=== PATIENT | female | born 1935 | race Hispanic/Latino ===

== ENCOUNTER 2018-08-04 17:03 | Inpatient (IN) | payer MEDICARE ==
[~2018-08-04] VITALS: Ht 160 cm; Wt 71.2 kg
[~2018-08-04 17:03] MED LIST: ACTOS15 MG PO; ASPIRIN81 MG PO; DONEPEZIL HCL5 MG PO; LEVAQUIN500 MG PO; LISINOPRIL-HCT1 EAC1 PO; SIMVASTATIN PO
[2018-08-04] MEDS ORDERED: VANCOMYCIN 1GM/NS 250 ML 250 ML IV SCH ×2 (18:00→18:30)
[2018-08-04] MEDS ORDERED: ACETAMINOPHEN 325 MG TAB PO PRN ×2 (18:00→18:30)
[2018-08-04 18:09] VITALS: BP 179/84
[2018-08-04 18:17] VITALS: BP 179/84
[2018-08-04] MEDS ORDERED: ALENDRONATE SOD70 MG PO (18:18)
[2018-08-04] MEDS ORDERED: PEPCID20 MG PO (18:18)
[2018-08-04] MEDS ORDERED: OS-CAL 500+D T1 EACH PO (18:18)
[2018-08-04] MEDS ORDERED: MELOXICAM7.5 MG PO (18:18)
[2018-08-04] MEDS ORDERED: FERROUS SULFAT325 MG PO (18:18)
[2018-08-04] MEDS ORDERED: REMERON15 MG PO (18:18)
[2018-08-04] MEDS ORDERED: METOPROLOL TART25 MG PO (18:18)
[2018-08-04] MEDS ORDERED: LISINOPRIL10 MG PO (18:18)
[2018-08-04] MEDS ORDERED: HYDROCHLOROTHIA25 MG PO (18:18)
[2018-08-04] MEDS ORDERED: PIOGLITAZONE HC45 MG PO (18:18)
[2018-08-04] MEDS ORDERED: namzaric PO (18:18)
[2018-08-04] MEDS ORDERED: POTASSIUM CHLO10 ME1 PO (18:18)
[2018-08-04] MEDS ORDERED: GABAPENTIN300 MG PO ×2 (18:18)
[2018-08-04] MEDS ORDERED: PIPER-TAZ 3.375 GM 50 ML IV SCH (18:30)
[2018-08-04] MEDS ORDERED: MELOXICAM 7.5 MG TAB PO PRN (18:30)
[2018-08-04] MEDS ORDERED: ATORVASTATIN 20 MG TAB PO SCH (19:15)
[2018-08-04 20:00] VITALS: BP 191/79
[2018-08-04 20:21] LABS: BASOPHILS # (AUTO) 0.1 (0.0-0.1); BASOPHILS % 0.6 % (0.0-1.0); EOSINOPHILS # (AUTO) 0.3 (0.0-0.4); EOSINOPHILS % 2.9 % (0.0-6.0); HEMATOCRIT 33.8 % (34.2-44.1); LYMPHOCYTES % 23.2 % (18.0-39.1); MEAN CORPUSCULAR HEMOGLOBIN 31.6 pg (28-32); MEAN CORPUSCULAR HGB CONC 32.5 g/dL (31-35); MEAN CORPUSCULAR VOLUME 97.1 fL (81-99); MONOCYTES # (AUTO) 0.5 (0.2-0.8); MONOCYTES % 6.1 % (4.4-11.3); NEUTROPHILS # (AUTO) 5.7 (2.1-6.9); NEUTROPHILS % 66.7 % (38.7-80.0); PLATELET COUNT 208 x10e3/uL (140-360); RED BLOOD COUNT 3.48 x10e6/uL (3.6-5.1); RED CELL DISTRIBUTION WIDTH 13.3 % (11.7-14.4)
[2018-08-04] MEDS: PIPER-TAZ 3.375 GM 50 ML IV SCH (20:30)
[2018-08-04] MEDS: MIRTAZAPINE 15 MG TAB PO SCH (20:30)
[2018-08-04] MEDS: DONEPEZIL HCL 5 MG TAB PO SCH (20:30)
[2018-08-04] MEDS: GABAPENTIN 300 MG CAP PO SCH (20:30)
[2018-08-04] MEDS: ATORVASTATIN 40 MG TAB PO SCH (20:31)
--- NOTE | 2018-08-04 20:32 | Consultation ---
DATE OF CONSULTATION: CARDIOLOGY CONSULTATION REFERRING PHYSICIAN: Dr. Jamaal Cox REASON FOR CONSULTATION: Peripheral arterial disease. HISTORY OF PRESENT ILLNESS: Ms. Dillard is a pleasant 83-year-old woman with past history of dementia, hypertension, diabetes mellitus, dyslipidemia, who presents to [facility] with complaints of leg wounds to bilateral lower extremities. She is mainly bedbound, has had developed over the course of last several weeks to months right lateral ankle wound as well as first left toe tip wound and left heel wound, seemed to have a pressure component. Given these findings and abnormal pedal pulses on exam, there is suspicion for peripheral arterial disease contributing to her ongoing issues. She is getting admitted for further evaluation, and podiatry has also been consulted. She denies any chest pain or shortness of breath. Her is at bedside. We have extensively discussed plan of care from a cardiovascular standpoint. At this point, arterial Dopplers have been ordered and are pending. We discussed possibility of angiography and possible peripheral intervention. Indications, alternatives, risks, and benefits have been discussed and all questions were answered. Patient and her seemed agreeable to current plan. REVIEW OF SYSTEMS: Twelve-system review negative except for as noted above. PAST MEDICAL HISTORY: Significant for hypertension, diabetes mellitus type 2, dyslipidemia, dementia. SOCIAL HISTORY: No alcohol, smoking, or drugs. FAMILY HISTORY: Noncontributory. PHYSICAL EXAMINATION: VITAL SIGNS: Temperature 96.1, heart rate 76, respiratory rate 18, blood pressure 179/84, O2 sat 97% on room air. GENERAL: In no acute distress, alert. NECK: No JVD. CHEST: Clear to auscultation. CARDIOVASCULAR: Regular rate and rhythm. Normal S1 and S2. No S3, no S4. No murmurs, no rubs. ABDOMEN: Soft, nontender. EXTREMITIES: No edema. Nonpalpable pedal or dorsalis pedis pulses bilaterally. Has right lateral ankle wound and left first toe tip erythema and black discoloration as well as left heel wound. CARDIOVASCULAR MEDICATIONS: Reviewed. 1. Lisinopril 40 mg daily. 2. KCl 10 mEq every 48 hours. 3. Metoprolol tartrate 25 mg daily, will switch to extended-release formulation for longer stable duration of blood pressure optimization. 4. Hydrochlorothiazide 25 mg every day. 5. Zosyn and vancomycin have been initiated. STUDIES: Glucose 144, no additional lab work currently available. ASSESSMENT: 1. Peripheral arterial disease suspected by clinical grounds with critical limb ischemia affecting bilateral lower extremities with pressure wound component, now off-loading initiated and podiatry consulted. 2. Hypertension. 3. Diabetes mellitus. 4. Dyslipidemia. 5. Dementia. RECOMMENDATIONS: 1. Obtain lab work and assess renal function as well as H and H. 2. Await lower extremity arterial Dopplers to further plan care. Will likely consider angiography and possible intervention during this admission. Thank you for the opportunity to participate in the care of Ms. Dillard. Will follow closely with you. Job#: [id number]
[2018-08-04] MEDS: METOPROLOL TARTRATE 25 MG TAB PO SCH (20:34)
[2018-08-04] MEDS: HYDROCHLOROTHIAZIDE 25 MG TAB PO SCH (20:34)
[2018-08-04] MEDS: FAMOTIDINE 20 MG TAB PO SCH (20:35)
[2018-08-04] MEDS: ASPIRIN 81 MG CHEW TAB PO SCH (20:35)
[2018-08-04] MEDS: LISINOPRIL 20 MG TAB PO SCH (20:35)
[2018-08-04 20:51] LABS: ALBUMIN 3.7 g/dL (3.5-5.0); ALBUMIN/GLOBULIN RATIO 1.1 (0.8-2.0); CALCIUM 11.3 mg/dL (8.4-10.2); CREATININE, SERUM 1.02 mg/dL (0.57-1.11); POTASSIUM 4.6 mmol/L (3.5-5.1)
[2018-08-04 21:06] LABS: ANION GAP 13.6 mmol/L (8-16)
[2018-08-04] MEDS: VANCOMYCIN 1GM/NS 250 ML 250 ML IV SCH (22:14)
[2018-08-04] MEDS ORDERED: SODIUM CHLORIDE 0.9% 250ML 250 ML ONE (22:20)
[2018-08-05] VITALS (7 sets, daily range): BP systolic 119–179; BP diastolic 58–74
[2018-08-05] MEDS: PIPER-TAZ 3.375 GM 50 ML IV SCH ×4 (02:00→21:00)
[2018-08-05] MEDS ORDERED: PIOGLITAZONE HCL 45 MG TAB PO SCH (09:00)
[2018-08-05] MEDS ORDERED: [UNRECOGNIZED DRUG - OTHER] PO SCH (09:00)
[2018-08-05] MEDS ORDERED: HYDROCHLOROTHIAZIDE PO SCH (09:00)
[2018-08-05] MEDS ORDERED: POTASSIUM CHLORIDE 10MEQ EA PO SCH (09:00)
[2018-08-05] MEDS ORDERED: LISINOPRIL 10 MG TAB PO SCH (09:00)
[2018-08-05] MEDS ORDERED: LISINOPRIL PO SCH (09:00)
[2018-08-05] MEDS: FAMOTIDINE 20 MG TAB PO SCH ×2 (09:14→16:30)
[2018-08-05] MEDS: ASPIRIN 81 MG CHEW TAB PO SCH (09:14)
[2018-08-05] MEDS: PIOGLITAZONE HCL 15 MG TAB PO SCH (09:14)
[2018-08-05] MEDS: FERROUS SULFATE 325 MG TAB PO SCH (09:14)
[2018-08-05] MEDS: HYDROCHLOROTHIAZIDE 25 MG TAB PO SCH (09:14)
[2018-08-05] MEDS: OYST-CAL-D 500MG TABLET PO SCH (09:15)
[2018-08-05] MEDS: METOPROLOL TARTRATE 25 MG TAB PO SCH (09:15)
[2018-08-05] MEDS: GABAPENTIN 300 MG CAP PO SCH ×2 (09:15→21:34)
[2018-08-05] MEDS: LISINOPRIL 20 MG TAB PO SCH (09:15)
--- NOTE | 2018-08-05 10:33 | Diagnostic Imaging Report ---
PROCEDURE:ANKLE 3+ VIEWS LEFT (AP, LATERAL, AND OBLIQUE) INDICATION: COMPARISON:None. FINDINGS: Diffuse osteopenia. No evidence of fracture or malalignment. Ankle mortise is preserved. Mild scattered degenerative changes. No evidence of erosion or bony destructive changes. There is soft tissue swelling at the ankle. Plantar calcaneal spur. CONCLUSION: Diffuse osteopenia without specific radiographic evidence of osteomyelitis. Soft tissue swelling in the ankle. Dictated by: RAUL STUART M.D. on 08/05/2018 at 10:42 Electronically approved by: RAUL STUART M.D. on 08/05/2018 at 10:42
--- NOTE | 2018-08-05 10:36 | Diagnostic Imaging Report ---
PROCEDURE:X-RAY LEFT FOOT, COMPLETE COMPARISON:None. INDICATIONS:FOOT ULCER FINDINGS: Diffuse osteopenia. There is no evidence of fracture or malalignment. No evidence of erosion or other bony destructive changes. The soft-tissues are unremarkable. Atherosclerotic vascular calcifications. There is a plantar calcaneal spur. CONCLUSION: Diffuse osteopenia without radiographic evidence of osteomyelitis. Dictated by: RAUL STUART M.D. on 08/05/2018 at 10:44 Electronically approved by: RAUL STUART M.D. on 08/05/2018 at 10:44
--- NOTE | 2018-08-05 10:38 | Diagnostic Imaging Report ---
PROCEDURE:X-RAY LEFT HEEL COMPARISON:None. INDICATIONS:FOOT ULCER FINDINGS: Radiographs of the calcaneus demonstrate diffuse osteopenia without evidence of erosion or other bony destructive changes. Soft tissues are unremarkable. Mild scattered degenerative changes. There is a plantar calcaneal spur. CONCLUSION: Diffuse osteopenia without radiographic evidence of osteomyelitis. Dictated by: RAUL STUART M.D. on 08/05/2018 at 10:46 Electronically approved by: RAUL STUART M.D. on 08/05/2018 at 10:46
--- NOTE | 2018-08-05 11:50 | Diagnostic Imaging Report ---
MRI of the right foot without contrast. History: Lateral hindfoot ulceration. Foot pain. Technique: Multiplanar multisequence MRI of the right foot without contrast Comparison: None Findings: There is abnormal skin thickening with skin ulceration at the lateral aspect of the ankle at the level of the distal fibula. There is underlying cortical destruction and bone marrow edema in the distal fibula consistent with osteomyelitis. There is adjacent soft tissue edema. The findings are best seen on series 11 image 17 through 22. There is superficial soft tissue edema and blistering at the lateral aspect of the ankle/foot. This is best seen on image 23 through 30. No acute fracture, dislocation or evidence of avascular necrosis. Scattered degenerative changes are seen. There is diffuse muscle atrophy. No ligamentous or tendon tear is seen. Impression: Findings consistent with cellulitis, skin ulceration and underlying osteomyelitis involving the distal fibula. No well-formed drainable fluid collection/abscess is seen. Signed by: Dr. Nick Tran M.D. on 08/05/2018 11:46 AM
--- NOTE | 2018-08-05 11:59 | Diagnostic Imaging Report ---
MRI of the left foot without contrast. History: Great toe blister. Foot pain. Technique: Multiplanar multisequence MRI of the left foot without contrast Comparison: None Findings: There is abnormal skin thickening and soft tissue edema at the left great toe. No underlying cortical destruction or focal bone marrow edema is seen to suggest osteomyelitis in this region. There is abnormal skin thickening and apparent ulceration/blistering at the lateral aspect of the foot at the level of the distal fifth metatarsal. No underlying cortical destruction or focal bone marrow edema is seen to suggest osteomyelitis in this region. There is superficial soft tissue edema about the foot is pronounced dorsally. This is best seen on series 3 image 1 through 7. No acute fracture, dislocation or evidence of avascular necrosis. Scattered degenerative changes are seen. There is diffuse muscle atrophy. No ligamentous or tendon tear is seen. Impression: Findings consistent with cellulitis at the great toe. No underlying cortical destruction or focal bone marrow edema is seen to suggest osteomyelitis in this region. Findings consistent with cellulitis and apparent skin ulceration/blistering at the lateral aspect of the foot at the level of the distal fifth metatarsal. No underlying cortical destruction or focal bone marrow edema is seen to suggest osteomyelitis in this region. Signed by: Dr. Nick Tran M.D. on 08/05/2018 11:56 AM
--- NOTE | 2018-08-05 12:43 | Consultation ---
DATE OF CONSULTATION: August 05, 2018 ADMITTING PHYSICIAN: Dr. Cox. REASON FOR CONSULTATION: Nonhealing ulcerations to both lower extremities with patient being bedbound with dementia. HISTORY OF PRESENT ILLNESS: This is an 83-year-old female who was seen accompanied by spouse on this date, sleeping, in no apparent distress. Most of the history was obtained from the spouse. Patient has a history of [id number] diabetes x20 to 30 plus years with hypertension and dementia. Patients is basically bedbound. According to the , the ulcerations started appearing 3 to 4 weeks ago. SOCIAL HISTORY: No smoking, drinking, or recreational drug use. Has 5 kids. PAST SURGICAL HISTORY: Remarkable for back surgery and hysterectomy. ALLERGIES: PATIENT'S SPOUSE DENIES. FAMILY HISTORY: Noncontributory. REVIEW OF SYSTEMS: Unobtainable. VITAL SIGNS: Afebrile, pulse rate 64, respirations 17, blood pressure 152/67, and O2 saturation 96%. LABS: Noted, has a white blood cell count of 8.58, hemoglobin 11.0, hematocrit 33.8 with a platelet count of 206. PODIATRIC PHYSICAL EXAMINATION: Reveals the following; VASCULAR: Pedal pulses reveal the DP and PT are diminished. Skin temperature warm to touch. CFT to all toes less than 5 seconds. NEUROLOGIC: Reveals a decrease in protective sensation when utilized a [place]-Lamar 5.07 monofilament wire. Muscle mass is asymmetrical. Muscle strength is unobtainable, but patient has very flaccid muscles secondary to the patient being bedbound for years now. DERMATOLOGICAL There is a grade 3 possibly 4 ulceration down to bone to the lateral aspect of the right ankle, measuring more than 2 cm in diameter. There seems to be some bone exposed with periwound cellulitis and minimal foul smell. Has a grade 3 ulceration on plantar aspect of left heel, more than 5 cm in diameter, necrotic scab possibly down to subcu and bone. ASSESSMENT: Peripheral artery disease, multiple ulcerations, possible osteo with diabetic neuropathy. PLAN: X-rays of the both the left heel and right ankle will be ordered. We will start Santyl collagenase followed by diluted wet-to-dry Betadine to the right ankle ulceration and Betadine ointment to the left. We will continue offloading with pillow under calves at all times. Bedside debridement of ulcers may be done tomorrow. Continue IV antibiotics such as vancomycin and Zosyn. Prognosis is guarded. Job#: [id number] MYRAIM
--- NOTE | 2018-08-05 17:22 | Consultation ---
DATE OF CONSULTATION: INFECTIOUS DISEASE CONSULTATION REASON FOR CONSULTATION: Feet ulcers bilateral. Concerned about infection, osteomyelitis. Thank you so much for asking me to see this patient. HISTORY OF PRESENT ILLNESS: Patient is seen and examined, chart reviewed. This is a very pleasant 83-year-old female who has underlying history of dementia, hypertension, diabetes mellitus, hyperlipidemia, peripheral vascular disease, who presented to the emergency room with bilateral lower extremity wounds, one on the right leg on the lateral ankle and one on the left leg on the hip. The patient is mainly bedbound, and it seemed to me the way she is lying that is where the pressure points are. Patient does not really provide any meaningful information. History was taken mainly from her chart as well as her at the bedside. The patient was admitted. According to the , she has no fever, no chills, no nausea, no vomiting, no diarrhea, no urgency, no frequency. Fourteen points reviewed with him. All to negative except for what mentioned above. PAST MEDICAL HISTORY: As above. PAST SURGICAL HISTORY: She had back surgery, hysterectomy. ALLERGIES: NKA. SOCIAL HISTORY: There is no smoking, drug abuse, alcohol abuse. FAMILY HISTORY: Otherwise unremarkable. Laboratory data reviewed. Her medication: She is currently on Zosyn, Prinivil, Lopressor, Neurontin, aspirin, K-Dur, , vancomycin. Her wound showed gram-negative rods. Her white count 8.58, hemoglobin 11. Sodium 137, potassium 4.6 and her glucose 136, creatinine 1.02. Patient had an MRI of her foot, showed cellulitis, skin ulceration, underlying osteomyelitis in the distal fibula on the right foot, which was done without contrast. An MRI of her left foot showed cellulitis of the great toe, underlying cortical destruction, edema, osteomyelitis of the region. PHYSICAL EXAMINATION GENERAL: She is currently alert, does not seem to be in acute distress. VITAL SIGNS: Stable. Currently afebrile. HEENT: She does not appear icteric. NECK: Supple. CHEST: Clear. HEART: S1 and S2. No S3 or S4, no murmur. ABDOMEN: Soft. Bowel sounds present. No tenderness. EXTREMITIES: No edema. There are ulcers noted with yellowish eschar noted on the right foot and the lateral ankle. IMPRESSION 1. I think patient has osteomyelitis of bilateral feet from pressure ulcers. Concerned about peripheral vascular disease. I suggest a debridement to obtain bone for biopsy. Will discuss with Podiatry. Obtain a sed rate, C-reactive protein, a PICC line. She is currently coverage antibiotic, continue with the same. 2. Dementia. 3. Diabetes mellitus. 4. Hypercholesterolemia. Concerned about peripheral vascular disease. Will follow. Job#: [id number] EV
[2018-08-05] MEDS ORDERED: SODIUM CHLORIDE 0.9% 1000ML 1,000 ML IV SCH (18:15)
[2018-08-05] MEDS ORDERED: SODIUM CHLORIDE 0.9% 250ML 250 ML ONE (21:18)
[2018-08-05] MEDS ORDERED: SODIUM CHLORIDE 0.9% 50ML 50 ML ONE (21:18)
[2018-08-05] MEDS: MIRTAZAPINE 15 MG TAB PO SCH (21:34)
[2018-08-05] MEDS: ATORVASTATIN 40 MG TAB PO SCH (21:34)
[2018-08-05] MEDS: DONEPEZIL HCL 5 MG TAB PO SCH (21:34)
[2018-08-05] MEDS: VANCOMYCIN 1GM/NS 250 ML 250 ML IV SCH (21:55)
--- NOTE | 2018-08-05 22:32 | History and Physical ---
HISTORY OF PRESENT ILLNESS: An 83-year-old female with past medical history positive for dementia, hypertension, diabetes, who came to the hospital transferred to my office because she came for followup. She was found to have pretty severe wounds on both feet with foul smelling areas, possible osteomyelitis. She was admitted to the hospital. She was found to have osteomyelitis on one of the foot and also possible peripheral vascular disease. REVIEW OF SYSTEMS: Patient is sleeping, cannot give any information. PAST MEDICAL HISTORY: Positive for diabetes, hypertension and also dementia. ALLERGIES: NOT ALLERGIC TO ANY MEDICATION. SOCIAL HISTORY: She does smoke, does not drink. PHYSICAL EXAMINATION VITAL SIGNS: Blood pressure 118/58, temperature is 96.9, heart rate 60 per minute, respiratory rate 16 per minute. Oxygen saturation 98%. HEART: Regular rhythm. Normal S1, S2 sounds. LUNGS: Clear bilaterally. ABDOMEN: Soft. EXTREMITIES: Show foot ulcers on both feet. LABS: On the BMP, sodium 137, potassium 4.6, chloride 96, CO2 32, BUN 31, creatinine 1.02, glucose 136. On the CBC, white blood count 8.58, hemoglobin 11.0, hematocrit 33.8, platelet count 208,000. AST 22, ALT 15. Total bilirubin 0.4, alkaline phosphatase 119. FINAL IMPRESSION 1. Osteomyelitis on the right fibula, wounds on both feet with cellulitis. 2. Uncontrolled diabetes mellitus with chronic renal insufficiency and neuropathy. 3. Peripheral vascular disease. 4. Hypertension. 5. Osteoporosis. 6. 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 PLAN OF TREATMENT: Continue Zosyn 3.375 g IV q.6 h., vancomycin 1 g IV once a day, Tylenol 325 mg q.4 h. as needed for pain or fever, Aricept 5 mg at bedtime, Fosamax 70 mg once a week, gabapentin 600 mg at bedtime. We are going to discontinue hydrochlorothiazide. Continue the Lipitor 40 mg daily. Continue Actos 15 mg daily. Pepcid 20 mg twice a day, meloxicam 15 mg daily as needed, metoprolol 25 mg daily, collagenase ointment 1 g daily, Tylenol 650 mg q.6 h. as needed for pain or fever, ferrous sulfate 325 mg daily, Remeron 7.5 mg at bedtime, Lisinopril 40 mg daily, calcium carbonate 500 mg daily, gabapentin 300 mg daily, potassium chloride 10 mEq q.48 h., and aspirin [address] Peoples is on the case for cardiology. He is going to do an angiogram on Saturday. Dr. Freedman is going to be evaluating him pretty soon. We are going to start the patient on normal saline because of the renal insufficiency. Discontinue the potassium. Discontinue hydrochlorothiazide. Will repeat a BMP tomorrow. Job#: [id number]
--- NOTE | 2018-08-05 23:10 | Progress Note ---
DATE: August 05, 2018 CARDIOLOGY PROGRESS NOTE SUBJECTIVE: No complaints. Discussed abnormal Doppler findings and plan of care. OBJECTIVE VITAL SIGNS: Temperature 97.1, heart rate 64, respiratory rate 17, blood pressure 152/67, O2 sat 96%. GENERAL: In no acute distress, alert. NECK: No JVD. CHEST: Clear to auscultation. CARDIOVASCULAR: Regular rate and rhythm. Normal S1 and S2. No S3, no S4. ABDOMEN: Soft, nontender. EXTREMITIES: No edema. First toe tip wound, left heel wound, and bilateral ankle wound noted. Abnormal pulses to pedal and dorsalis pedis bilaterally. CARDIOVASCULAR MEDICATIONS: Reviewed. 1. Atorvastatin 40 mg nightly. 2. Metoprolol tartrate 25 mg daily. 3. Lisinopril 40 mg daily. 4. Aspirin 81 mg daily. 5. KCl 10 mEq every 48 hours. STUDIES: Reviewed. Potassium 4.6, creatinine 1.02. Hemoglobin 11, platelets 208,000. Normal transaminases. ASSESSMENT 1. Foot ulcers and peripheral artery disease. 2. Dyslipidemia. 3. Diabetes mellitus. 4. Hypertension. 5. Neuropathy. 6. Osteoporosis. 7. Anemia, chronic. RECOMMENDATIONS: Discussed extensively indications, alternatives, risks, and benefits for angiography and possible intervention. Patient agreeable. Discussed plan of care with patient and family members. Will schedule likely tomorrow a.m. Further recommendations to follow. Job#: [id number]
[2018-08-06] VITALS (14 sets, daily range): BP systolic 96–202; BP diastolic 51–92
[2018-08-06] MEDS ORDERED: SODIUM CHLORIDE 0.9% 1000ML 1,000 ML IV SCH
[2018-08-06] MEDS ORDERED: SODIUM CHLORIDE 0.9% 50ML 50 ML ONE (01:58)
[2018-08-06] MEDS: PIPER-TAZ 3.375 GM 50 ML IV SCH ×4 (02:04→20:00)
[2018-08-06 06:39] LABS: CALCIUM 8.5 mg/dL (8.4-10.2); CREATININE, SERUM 1.1 mg/dL (0.57-1.11)
[2018-08-06] MEDS: FAMOTIDINE 20 MG TAB PO SCH ×3 (07:30→16:10)
[2018-08-06] MEDS ORDERED: MIDAZOLAM HCL 2 MG/2 ML VIAL ONE (07:49)
[2018-08-06] MEDS ORDERED: HEPARIN SOD (PORCINE) 1000 UNIT/ML 30ML ONE (07:49)
[2018-08-06] MEDS ORDERED: LIDOCAINE HCL 2% LOCAL 20 ML VIAL ONE (07:50)
[2018-08-06] MEDS ORDERED: SODIUM CHLORIDE 0.9% 1000ML 1,000 ML ONE (07:50)
[2018-08-06] MEDS ORDERED: HEPARIN SOD/SOD CHLORIDE 2,000 ML ONE (07:50)
[2018-08-06] MEDS ORDERED: FENTANYL CITRATE/PF 100MCG/2 ML INJ ONE (07:50)
[2018-08-06] MEDS ORDERED: IOPAMIDOL 300MG/ML 100 ML INFUS..BTL IV ONE ×3 (07:50→09:10)
[2018-08-06] MEDS ORDERED: NITROGLYCERIN/D5W 200 MCG/ML 0 ML ONE (07:50)
--- NOTE | 2018-08-06 08:56 | Progress Note ---
DATE: August 06, 2018 CARDIOLOGY PROGRESS NOTE SUBJECTIVE: No complaints. OBJECTIVE VITAL SIGNS: Temperature 97.1, heart rate 63, respiratory rate 19, blood pressure 160/68, O2 sat 95% on room air. GENERAL: In no acute distress. NECK: No JVD. CHEST: Clear to auscultation. CARDIOVASCULAR: Regular rate and rhythm. Normal S1 and S2. No S3, no S4. No murmurs or rubs. ABDOMEN: Soft, nontender. EXTREMITIES: Left heel wound and right lateral ankle wound. CARDIOVASCULAR MEDICATIONS: Reviewed. Zosyn, vancomycin, atorvastatin, lisinopril, metoprolol, ferrous sulfate, and aspirin. STUDIES: Reviewed for today. Sodium 135, potassium 4, chloride 99, bicarbonate 26, BUN 25, creatinine 1.1, glucose 125, calcium 8.5. ASSESSMENT 1. Peripheral arterial disease by Dopplers. 2. Foot ulcers bilaterally. 3. Dyslipidemia. 4. Diabetes mellitus. 5. Hypertension. 6. Neuropathy. 7. Osteoporosis. 8. Chronic anemia. RECOMMENDATIONS: Schedule for angiography and possible intervention today. Foot care per Dr. Freedman. Continue current cardiovascular medications. Job#: [id number]
--- NOTE | 2018-08-06 09:06 | Progress Note ---
DATE: August 06, 2018 SUBJECTIVE: The patient will be going to have an angiogram and possible angioplasty per Dr. Peoples this morning. OBJECTIVE: Vitals are noted to be afebrile with vital signs stable. Ulcerations to both lower extremities show minimal change since yesterday. ASSESSMENT: Grade-4 ulceration down to bone right ankle with a grade-3 ulcer, plantar aspect, left heel, more than 5 cm with necrotic scab possibly down to subcutaneous and bone. PLAN: Continue offloading. Continue local wound care. Will await Dr. Peoples to perform his vascular procedure. Ulcerations will possibly be debrided tomorrow. Job#: [id number]
[2018-08-06] MEDS: PIOGLITAZONE HCL 15 MG TAB PO SCH (10:02)
[2018-08-06] MEDS: OYST-CAL-D 500MG TABLET PO SCH (10:03)
[2018-08-06] MEDS: LISINOPRIL 20 MG TAB PO SCH (10:03)
[2018-08-06] MEDS: GABAPENTIN 300 MG CAP PO SCH ×2 (10:03→20:14)
[2018-08-06] MEDS: ASPIRIN 81 MG CHEW TAB PO SCH (10:03)
[2018-08-06] MEDS: FERROUS SULFATE 325 MG TAB PO SCH (10:03)
[2018-08-06] MEDS: METOPROLOL TARTRATE 25 MG TAB PO SCH (10:03)
--- NOTE | 2018-08-06 10:27 | Operative Report ---
DATE OF PROCEDURE: August 06, 2018 PROCEDURE INDICATIONS: Critical limb ischemia with decubitus wounds to left heel and 1st toe tip and lateral right ankle wound with abnormal Doppler ultrasound concerning for peripheral arterial disease. PROCEDURES PERFORMED 1. Abdominal aortogram. 2. Selective lower extremity angiography, bilateral. 3. Right common femoral artery 6-Montserratian Angio-Seal closure. PROCEDURE COMPLICATIONS: None. ESTIMATED BLOOD LOSS: Less than 15 mL. PROCEDURE SUMMARY: After consent was obtained, the patient was prepped and draped in a sterile fashion. A 6-[place]atian sheath was placed to the right common femoral artery. An Omni Flush catheter was positioned in the distal descending abdominal aorta for digital subtraction angiography in orthogonal views, given cement from vertebroplasty obscuring the aortoiliac bifurcation, in order to better evaluate this segment of the arteries. Additional lower extremity angiography was selectively performed to each left and then right lower extremity with some digital subtraction angiography as well as cine angiography pictures to optimally visualize vessels. The following findings were noted: The renal arteries are patent. The distal descending abdominal aorta and iliac vessels have luminal irregularities. The iliac vessels are very tortuous with right common iliac artery having an over 90-degree turn and left external iliac artery again having over 90-degree turns. The common femoral, profunda femoris, superficial femoris and popliteal arteries have luminal irregularities. The right anterior tibial artery is 100% occluded throughout proximal to distal. The right posterior tibial is 100% occluded proximal to distal. The TP trunk and peroneal artery are patent, large in caliber, with the peroneal artery having 30% proximal stenosis. It gives right lateral ankle branches, and blushing is significantly pronounced to the right lateral aspect of the area of the wound consistent with linear perfusion to this level. There is otherwise severe small vessel diabetic foot disease. The left anterior tibial is proximal to distal 100% occluded, long chronic total occlusion. The left dorsalis pedis artery in the mid portion has a short segment patency, which fills the peroneal branches. However, distally again occluded. Again, very severe small vessel disease at the digital arteries level. The left peroneal artery has 40% proximal stenosis, and the left posterior tibial artery is overall small in caliber and diffusely diseased, less than 50%. CONCLUSION: Severe small vessel foot disease bilaterally. Single peroneal artery perfusing the right ankle site wound. Otherwise, left heel wound perfused via the posterior tibial artery and peroneal artery. Digital arteries at the left foot level are poorly perfused with a long anterior tibial occlusion and short segment of dorsalis pedis patency with distal occlusion. Poor outflow. RECOMMENDATIONS: Aggressive offloading, wound care. Guarded foot prognosis bilaterally. Perfusion to the right lateral ankle wound noted. As needed, debridement can be performed from a vascular standpoint with some perfusion to this level. Job#: [id number]
[2018-08-06] MEDS: COLLAGENASE OINTMENT 30 GM TUBE TP SCH (11:10)
--- NOTE | 2018-08-06 12:52 | Diagnostic Imaging Report ---
EXAM: RENAL ULTRASOUND Date: 08/06/2018 12:00 AM Indication: Acute renal failure Comparison: None. Limitations: Patient unable to adequately position or hold breath. Image quality moderately degraded. Technique: Sonographic evaluation of the kidneys. Color doppler was utilized to supplement evaluation. FINDINGS: KIDNEYS: Right: Measures 7.1 cm in length. No hydronephrosis or solid mass lesion identified. Renal cortex measures 1.2 cm. Left: Measures 9.4 cm in length. No hydronephrosis or solid mass lesion identified. Renal cortex measures 1.4 cm. URINARY BLADDER: Unremarkable. Physiologic ureteral jets noted. OTHER: None. IMPRESSION: Renal size discrepancy with probable increased echotexture right kidney which can be seen in the setting of renal artery stenosis. Correlation recommended. Signed by: Dr. Jamal Hinds MD on 08/06/2018 12:49 PM
--- NOTE | 2018-08-06 18:32 | Progress Note ---
DATE: August 06, 2018 INTERNAL MEDICINE PROGRESS NOTE SUBJECTIVE: An 83-year-old female who had an angiogram done by Dr. Peoples and he found peripheral vascular disease with small vessel disease also. He recommended conservative treatment. She is not a candidate for any interventional procedure. Patient is going to have treatment by Dr. Freedman tomorrow. PHYSICAL EXAM: VITAL SIGNS: Blood pressure 154/65. Temperature 97.1. Heart rate 66 per minute. Respiratory rate 18 per minute. Oxygen saturation 97%. HEART: Regular rhythm. No murmur. No extra sounds. LUNGS: Clear bilaterally. ABDOMEN: Soft. EXTREMITIES: Show dressing on both feet. LABORATORY DATA: On the BMP sodium 135, potassium 4.0, chloride 99, CO2 26, BUN 25, creatinine 1.10. Glucose 127. On the CBC white blood count 8.58. Hemoglobin 11.0, hematocrit 33.8, platelet count 208,000. AST 22, ALT 15. Total bilirubin 0.4, alkaline phosphatase of 119. FINAL IMPRESSION: 1. Bilateral leg wounds with osteomyelitis on the right foot. 2. Uncontrolled diabetes mellitus type 2 with chronic renal insufficiency. 3. 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 4. Dementia. 5. Anemia of chronic disease. 6. Severe peripheral vascular disease. 7. Osteoporosis. 8. Osteoarthritis. PLAN OF TREATMENT: Continue Zosyn 3.375 grams IV q.6 hours. Vancomycin 1 gram IV daily. Continue Aricept 5 mg at bedtime. Fosamax 70 mg once a week. Gabapentin 300 mg at bedtime. Lisinopril 40 mg daily. Clonidine 0.2 mg q.4 h. as needed. Actos 15 mg daily. Pepcid 20 mg twice a day. Meloxicam 15 mg daily as needed. Aspirin 81 mg daily. Going to discontinue meloxicam because of the renal insufficiency. Continue Tylenol 350 mg q.6 h. as needed for pain and fever. Ferrous sulfate 325 mg daily. Remeron 7.5 mg at bedtime. Lipitor 40 mg daily. Calcium carbonate 500 mg daily. Gabapentin 300 mg daily. Metoprolol 25 mg daily. Collagenase 1 gram daily. The patient is going to have debridement tomorrow by Dr. Freedman, and after that he is going to go to [place]. Job#: [id number]
[2018-08-06] MEDS: MIRTAZAPINE 15 MG TAB PO SCH (20:14)
[2018-08-06] MEDS: ATORVASTATIN 40 MG TAB PO SCH (20:14)
[2018-08-06] MEDS: DONEPEZIL HCL 5 MG TAB PO SCH (20:14)
[2018-08-06] MEDS: VANCOMYCIN 1GM/NS 250 ML 250 ML IV SCH (21:00)
[2018-08-06] MEDS: CLONIDINE HCL 0.2 MG TAB PO PRN (23:35)
[2018-08-07] MEDS: PIPER-TAZ 3.375 GM 50 ML IV SCH ×3 (02:00→14:52)
[2018-08-07 04:00] VITALS: BP 113/51
[2018-08-07 06:20] LABS: ANION GAP 12.8 mmol/L (8-16); CALCIUM 8.5 mg/dL (8.4-10.2); CREATININE, SERUM 0.97 mg/dL (0.57-1.11); POTASSIUM 3.8 mmol/L (3.5-5.1)
[2018-08-07 07:30] VITALS: BP 122/59
[2018-08-07 07:42] VITALS: BP 122/59
[2018-08-07] MEDS: FERROUS SULFATE 325 MG TAB PO SCH (08:55)
[2018-08-07] MEDS: FAMOTIDINE 20 MG TAB PO SCH ×2 (08:55→16:25)
[2018-08-07] MEDS: PIOGLITAZONE HCL 15 MG TAB PO SCH (08:55)
[2018-08-07] MEDS: ASPIRIN 81 MG CHEW TAB PO SCH (08:55)
[2018-08-07] MEDS: LISINOPRIL 20 MG TAB PO SCH (08:56)
[2018-08-07] MEDS: COLLAGENASE OINTMENT 30 GM TUBE TP SCH (08:56)
[2018-08-07] MEDS: METOPROLOL TARTRATE 25 MG TAB PO SCH (08:56)
[2018-08-07] MEDS: GABAPENTIN 300 MG CAP PO SCH (08:56)
[2018-08-07] MEDS: OYST-CAL-D 500MG TABLET PO SCH (08:56)
--- NOTE | 2018-08-07 09:12 | Progress Note ---
DATE: August 07, 2018 SUBJECTIVE: Patient seen at bedside, accompanied by multiple family members. Doing somewhat better. OBJECTIVE: VITAL SIGNS: Afebrile. Pulse rate 56, respirations 16, blood pressure 122/59, O2 saturation 94%. EXTREMITIES: Has a grade 4 ulceration with some bone exposed to the lateral aspect of the right fibula. Ulcer is approximately 2.5 to 3 cm in diameter. Has a grade 3 ulcer, plantar aspect, left heel more than 4 to 5 cm in diameter. Pedal pulses are diminished. Skin temperature between warm and cool to touch. LABS: Noted. White blood cell count of 8.5. ASSESSMENT: Peripheral arterial disease with a grade 4 ulcer, right foot and grade 3 ulcer, left. PLAN: Her family members being present. Sharp excisional debridement of the ulcer was carried down to bone. Devitalized tissue removed until good viable bleeding tissue was achieved. Will continue applying Santyl, followed by diluted wet-to-dry Betadine. Continue offloading. Patient will be transferred to [place] for IV antibiotics and continued local wound care. Family members instructed and informed to try to keep the foot offloaded with a pillow under calf to offload both the left heel and then right ankle area. Job#: [id number]
--- NOTE | 2018-08-07 12:20 | Consultation ---
DATE OF CONSULTATION: August 07, 2018 RENAL CONSULTATION ADMITTING PHYSICIAN: Dr. Cox. REASON FOR CONSULTATION: Chronic kidney disease. HISTORY OF PRESENT ILLNESS: An 83-year-old female with history of diabetes, hypertension and dementia, who was admitted to [facility] for bilateral lower extremity wounds. Patient has some dementia and just had surgery this morning, and history is taken from medical record as well as patient's who is at bedside. Patient developed bilateral lower extremity wounds and was following up with Podiatry, and her wounds and general condition were getting worse. Patient was seen by Dr. Cox, and patient was sent to hospital for further instruction. Patient was found to have a decreased estimated GFR, and nephrology consultation was called. REVIEW OF SYSTEMS: As above. Otherwise all other systems negative and limited due to patient's dementia. PAST MEDICAL HISTORY 1. Diabetes. 2. Hypertension. 3. Dementia. 4. Bilateral lower extremity wounds. SOCIAL HISTORY: Currently no tobacco or alcohol or IV drugs. FAMILY HISTORY: Sister with chronic kidney disease. ALLERGIES: NO KNOWN DRUG ALLERGIES. CURRENT MEDICATIONS: See list, includes lisinopril, metoprolol, calcium carbonate, iron sulfate, Zosyn, vancomycin, Mobic discontinued. VITAL SIGNS: Blood pressure 122/59, pulse 56, temperature 96.3, respiratory rate 16. PHYSICAL EXAMINATION GENERAL: No apparent distress. HEENT: Oropharynx clear. No scleral icterus. No papilledema. NECK: Supple. No elevation of jugular venous pressure. No lymphadenopathy. CHEST: Clear to auscultation anteriorly bilaterally. CARDIOVASCULAR: Regular rhythm. No murmurs, rubs or gallops. ABDOMEN: Soft. Positive bowel sounds. No tenderness, no rebound. EXTREMITIES: No edema, no clubbing, no cyanosis. Bilateral dressing on both lower extremities. LABS: Sodium 135, potassium 4, chloride 99, CO2 26, BUN 25, creatinine 1.10, estimated GFR 47 mL per minute. Creatinine currently 0.97 with estimated GFR of 55. White count 8.58, hemoglobin 11, hematocrit 33.8, platelets 208. IMAGING Renal ultrasound: Right kidney 7.1 cm, left kidney 9.4 cm. Increased echo texture. Possible renal artery stenosis with discrepancy in size. Foot magnetic resonance imaging: Consistent with cellulitis of the right foot. MRI of the left foot, no evidence of osteomyelitis. ASSESSMENT AND PLAN 1. Patient's current estimated glomerular filtration rate is 55 mL per minute, which would make her stage 3 chronic kidney disease. May improve slightly with antibiotics and now that she is off Mobic, and she may be possibly stage 2. Her renal ultrasound is consistent with this. Will check urine studies. Otherwise will need to dose all antibiotics appropriately and follow vancomycin levels. 2. Hypertension. Patient with possible renal artery stenosis. Doppler has been ordered, although left kidney is generally 1 to 1.5 cm bigger than the right kidney. 3. Hyponatremia. Improved. Will follow and adjust IV fluids as needed. 4. Diabetes. Per primary team. 5. Bilateral lower extremity wounds and cellulitis. Continue current antibiotics and wound care. Job#: [id number] EV
[2018-08-07 12:22] VITALS: BP 147/64
[2018-08-07 14:00] LABS: BILIRUBIN,URINE NEGATIVE (NEGATIVE); CLARITY,URINE SL CLOUDY (CLEAR); COLOR,URINE YELLOW (YELLOW); KETONES,URINE NEGATIVE (NEGATIVE); LEUKOCYTE ESTERASE ,URINE TRACE (NEGATIVE); NITRITE,URINE NEGATIVE (NEGATIVE); PROTEIN,URINE DIPSTICK NEGATIVE (NEGATIVE); URINE UROBILINOGEN 0.2 mg/dL (0.2 - 1)
[2018-08-07 14:14] LABS: AMORPHOUS SEDIMENT,URINE FEW (FEW); BACTERIA,URINE FEW /HPF; EPITHELIAL CELLS,URINE FEW /LPF; RBC,URINE 0-5 /HPF (0-5); TRANSITIONAL EPI CELLS,URINE FEW; WBC,URINE (MAN) 0-5 /HPF (0-5); YEAST,URINE FEW
[2018-08-07 14:35] LABS: CREATININE,URINE RANDOM 25.47 mg/dL (47-110); TOTAL PROTEIN, URINE 6.9 mg/dL (1-14)
--- NOTE | 2018-08-07 16:21 | Progress Note ---
DATE: August 07, 2018 CARDIOLOGY PROGRESS NOTE SUBJECTIVE: No complaints. OBJECTIVE VITAL SIGNS: Temperature 97.2, heart rate 51, respiratory rate 18, blood pressure 147/64, O2 sat 97% on room air. GENERAL: In no acute distress, alert. NECK: No JVD. CHEST: Clear to auscultation bilaterally. CARDIOVASCULAR: Regular rate and rhythm. Normal S1 and S2, no S3 or S4. ABDOMEN: Soft. EXTREMITIES: No edema and left heel and first toe wound and right lateral malleolus heel, status post debridement. CARDIOVASCULAR MEDICATIONS: Reviewed. Lisinopril 40 mg daily, metoprolol 25 mg daily, aspirin 81 mg daily, clonidine p.r.n., atorvastatin 40 mg nightly, on antibiotics p.r.n. STUDIES: Reviewed. Sodium 137, potassium ___.8, chloride 102, ____, BUN 22, creatinine 0.97, glucose 134, calcium 9.5. Vancomycin 14. ASSESSMENT: 1. Peripheral arterial disease, severe small vessel full disease bilaterally with single peroneal artery perfused in right ankle site wound, otherwise left heel wound perfuse via left posterior tibial and peroneal artery. These 2 arteries at the left foot level are severely diseased, anterior tibial occluded. Distal dorsalis pedis occluded, overall poor flow at this level. 2. Dyslipidemia. 3. Diabetes mellitus. 4. Hypertension. 5. Neuropathy. 6. Osteoporosis. 7. Chronic anemia. 8. Foot ulcers bilaterally. PLAN: 1. Continue current cardiovascular medications. 2. Antibiotics. 3. Foot care per podiatry. 4. Possible transfer to [place]. Job#: [id number]
[2018-08-07] MEDS: CLONIDINE HCL 0.2 MG TAB PO PRN (16:25)
[2018-08-07 16:32] VITALS: BP 167/76
--- NOTE | 2018-08-07 16:39 | Discharge Summary ---
This is an 83-year-old female who has a past medical history positive for dementia. The patient was originally admitted to [facility] with infected wounds of both feet. She was found to have osteomyelitis of the right foot and severe peripheral vascular disease. Patient underwent debridement by Dr. Freedman. According to Dr. Peoples, [employer] hrms developer on the case, she is not a candidate for any type of invasive intervention on the poor circulation she is having in both lower extremities. Patient is going to be transferred to [facility] today. On the physical exam, the heart shows regular rhythm. Normal S1 and S2 sounds. Lungs are clear bilaterally. Abdomen is soft. Extremities show bilateral wounds on both feet. FINAL IMPRESSIONS 1. Osteomyelitis, right foot. 2. Open wound and cellulitis on the left foot. 3. Uncontrolled diabetes mellitus, type 2, with chronic renal insufficiency. 4. Chronic renal insufficiency, stage 3, most likely secondary to diabetic nephropathy. 5. Peripheral vascular disease. 6. Osteoporosis. 7. Diabetic neuropathy. PLAN OF TREATMENT: Continue current IV antibiotic therapy. Continue wound care. Continue antiplatelet agents. Continue with the renal diabetic diet. Patient is going to be transferred to [facility] for continuation of IV antibiotic and wound care. STACY JEONG MD Job#: [id number]
--- NOTE | 2018-08-07 17:59 | Diagnostic Imaging Report ---
EXAMINATION: Renal Doppler ultrasound. CLINICAL HISTORY :Hypertension COMPARISON: <None available.> TECHNIQUE: Attempted Grayscale and color Doppler evaluation of the kidneys and bladder was performed in transverse and longitudinal planes. Attempted Doppler interrogation of the main, hilar, segmental and arcuate renal arteries bilaterally as well as evaluation of the aorta were performed. DISCUSSION: RIGHT KIDNEY: The right kidney measures 8.9 cm in length and shows increased echogenicity. No hydronephrosis, shadowing calculi or solid mass lesions. Right main renal artery PSV is 33 cm/sec. Highest right segmental artery PSV is 33 cm/sec. The right renal artery PSV/aortic PSV ratio is No measurable. LEFT KIDNEY: The left kidney measures 8.6 cm in length and shows increased echogenicity. No hydronephrosis, shadowing calculi or solid mass lesions. Left main renal artery PSV is 25 cm/sec. Highest left segmental artery PSV is not measurable. The left renal artery PSV/aortic PSV ratio is not measurable. Abdominal aortic PSV is not measurable. IMPRESSION: Nondiagnostic renal Doppler ultrasound. Majority of the renal arteries and aorta not measurable due to difficulty with exam by technologist. Small kidneys with increased echogenicity secondary to chronic medical renal disease. Signed by: Dr. Grant Reagan M.D. on 08/07/2018 5:56 PM
[2018-08-07 18:09] VITALS: BP 142/60
[2018-08-08] MEDS ORDERED: ALENDRONATE SODIUM 70 MG TAB PO SCH (06:30)
--- OUTSIDE RECORDS SUMMARY | 2018-08-12 12:08 | XMS REPORT | Summary of Care ---
Author Author [facility] Address Unknown Phone Unavailable Encounter HQ Steve(RAMIRO) [id number] Date(s): 04/10/18 - 05/09/18 Counts include 234 beds at the [facility] Encounter Diagnosis Encounter for general adult medical examination without abnormal findings (Final) - Encounter for screening for diabetes mellitus (Final) - Encounter for screening for lipoid disorders (Final) - Encounter for screening for infections with a predominantly sexual mode of trans mission (Final) - Discharge Disposition: Home or Self Care Attending Physician: Waldemar España Vital Signs No data available for this section Problem List Condition Effective Dates Status Health Status Informant Diabetes(Confirmed) Active High blood pressure Active (not hypertension)(Confir med) Arthritis(Confirmed) Active Osteoporosis(Confirm Active ed) Allergies, Adverse Reactions, Alerts No data available for this section Medications No data available for this section Results No data available for this section Immunizations No data available for this section Procedures Procedure Date Related Diagnosis Body Site Status Cataract surgery Completed Social History Social History Type Response Smoking Status Never smoker; Exposure to Tobacco Smoke None; Cigarette Smoking Last 365 Days No; Reg Smoking Cessation Counseling No entered on: 04/26/17 Assessment and Plan No data available for this section
--- OUTSIDE RECORDS SUMMARY | 2018-08-12 12:08 | XMS REPORT | Summary of Care ---
Author Author [facility] Organization [facility] Address Unknown Phone Unavailable Encounter HQ Encntr_alias(FIN) [id number] Date(s): 01/02/17 - 01/02/17 [facility] [place] [address] [place] [address]- [phone] Discharge Disposition: Home or Self Care Attending Physician: Kia Avila MD Vital Signs No data available for this section Problem List No data available for this section Allergies, Adverse Reactions, Alerts No data available for this section Medications No data available for this section Results No data available for this section Immunizations No data available for this section Procedures No data available for this section Social History No data available for this section Assessment and Plan No data available for this section
--- OUTSIDE RECORDS SUMMARY | 2018-08-12 12:08 | XMS REPORT | Continuity of Care Document ---
Author Author Rangel sanon [facility] Interface Address Unknown Phone Unavailable Problems Problem Status Onset Date Classification Date Reported Comments Source RIGHT SHOULDER Active 03/31/2018 [facility] [place] M25.511 Active 09/03/2017 [facility] M25.561 Active 05/02/2017 [facility] Encounter for general adult medical examination without abnormal findings 05/12/2018 [facility] [place] Encounter for screening for diabetes mellitus 05/12/2018 [facility] [place] Encounter for screening for lipoid disorders 05/12/2018 [facility] [place] Encounter for screening for infections with a predominantly sexual mode of transmission 05/12/2018 [facility] [place] Diabetes Active Problem 05/12/2018 [facility], ALVAREZ Sanon,[facility] [place] High blood pressure (<span ID="[id number]">Confirmed</span>) Active Problem 05/12/2018 [facility], ALVAREZ Sanon,[facility] [place] Arthritis Active Problem 05/12/2018 [facility], ALVAREZ Sanon,[facility] [place] Osteoporosis Active Problem 05/12/2018 [facility], MAYTE Fab,[facility] [place] PAIN IN RIGHT KNEE Active [facility] PAIN IN LEFT KNEE Active [facility] PAIN IN RIGHT SHOULDER Active [facility] PRIMARY OSTEOARTHRITIS, RIGHT SHOULDER Active [facility] [place] IMPINGEMENT SYNDROME OF RIGHT SHOULDER Active [facility] [place] SUPERIOR GLENOID LABRUM LESION OF RIGHT Active [facility] [place] ENCNTR FOR GENERAL ADULT MEDICAL EXAM W/ Active [facility] [place] ENCOUNTER FOR SCREENING FOR DIABETES ROBERTO Active [facility] [place] ENCOUNTER FOR SCREENING FOR LIPOID DISOR Active [facility] [place] ENCNTR SCREEN FOR INFECTIONS W SEXL MODE Active [facility] [place] Medications Medication Details Route Status Patient Instructions Ordering Provider Order Date Source Allergies, Adverse Reactions, Alerts Substance Category Reaction Severity Reaction type Status Date Reported Comments Source Immunizations Immunization Date Given Site Status Last Updated Comments Source Results Order Name Results Value Reference Range Date Interpretation Comments Source Shoulder series DX Shoulder series DX Right shoulder 3 views: There is generalized osteoporosis. There is marked bone loss involving the humeral head with flattening and sclerosis. The glenoid appears relatively uninvolved. There is no fracture or dislocation. Mild periarticular calcification is seen around the inferior glenohumeral joint. There is no significant change compared to previous right shoulder radiographs on 05/02/2017. IMPRESSION: Severe arthropathy involving the right humeral head without acute radiographic abnormalities in the right shoulder. [id number] 09/03/2017 - - Read by: Kelvin Olsen MD Dictated Date/time: 09/03/17 12:13 Electronically Signed by: Kelvin Olsen MD 09/03/17 12:18 FINAL REPORT [facility] cervical w/wo contrast MRI Spine cervical w/wo contrast MRI Exam: MRI of the neck with and without contrast DATE: 05/17/2017 at 17:47. INDICATION: Carotid body tumor. COMPARISON: CT neck 04/03/2017, MRI cervical spine 03/18/2017. TECHNIQUE: Multiplanar multisequence images were obtained before and after the intravenous administration of 13 cc Dotarem. Discussion: There has been no significant change in the enhancing bilobed mass at the left common carotid bifurcation measuring 33 x 16 x 12 mm, splaying the internal and external carotid arteries. There is no discrete invasion into the cervical ICA. Stable 8 x 10 x 17 mm enhancing mass at the bifurcation of the right common carotid artery splaying the right internal and external carotid arteries without invasion into the cervical right ICA. 7 x 9 mm enhancing lesion in the left carotid space lateral to the distal left ICA at C1 level, unchanged since prior CT exam. 5 mm enhancing mass medial to the distal cervical left ICA at C2 level, stable since prior CT. No enhancing masses in the jugular foramen or middle ear cavities. Degenerative changes in the cervical spine are resulting in canal stenosis or cord compression. 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 05/17/2017 - - Read by: Alie Sloan MD Dictated Date/time: 05/18/17 11:08 Electronically Signed by: Alie Sloan MD 05/20/17 08:55 FINAL REPORT [facility] [place] Knee 1-2 Views Bilateral DX Knee 1-2 Views Bilateral DX Patient Name: JEREMY ARCHER : 1935; Age: 82 years y/o Female MR: [id number] BILATERAL KNEES * RIGHT KNEE, 2 views History: right knee pain, Technique: Frontal and lateral radiographs of the right knee were obtained. FINDINGS: There is no evidence of a significant joint effusion. There is no evidence of fracture, dislocation, or acute change. There are minimal degenerative changes. There is no significant joint space narrowing. There is mild spurring from the tibial spines and pulse of the patella. Vascular calcifications are noted. IMPRESSION: 1. Minimal degenerative changes, otherwise, negative right knee. * LEFT KNEE, 2 views History: left knee pain, Technique : Frontal and lateral radiographs of the left knee were obtained. FINDINGS: There is no evidence of a significant joint effusion. There is no evidence of fracture, dislocation, or acute change. There are minimal degenerative changes. There is slight spurring from the tibial spines and poles of the patella. The joint spaces are well-maintained. Vascular calcifications are noted. IMPRESSION: 1. Minimal degenerative changes. Otherwise, negative left knee. SL: [id number] 05/02/2017 - - Read by: Doyle Villar MD Dictated Date/time: 05/02/17 14:07 Electronically Signed by: Doyle Villar MD 05/02/17 14:25 FINAL REPORT [facility] Shoulder 1 view DX Shoulder 1 view DX Patient Name: JEREMY ARCEHR : 1935; Age: 82 years y/o Female MR: [id number] RIGHT SHOULDER, one view History: Right shoulder pain. Technique: Single limited frontal view of the right shoulder was obtained. IMPRESSION: 1. Abnormal right glenohumeral joint. The humeral head is markedly flattened and deformed which could be related to prior trauma, avascular necrosis, or degenerative change. There is narrowing of the glenohumeral joint. No significant osteophyte formation is seen. 2. No other osteoarticular abnormalities. SL: [id number] 05/02/2017 - - Read by: Doyle Villar MD Dictated Date/time: 05/02/17 13:31 Electronically Signed by: Doyle Villar MD 05/02/17 13:32 FINAL REPORT [facility] soft tissue w/wo contrast CT Neck soft tissue w/wo contrast CT EXAM: CT OF THE NECK SOFT TISSUES WITHOUT AND WITH CONTRAST DATE: 04/03/2017 10:16 AM CDT . 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 Axial, sagittal, coronal images are interpreted. -- This exam was performed according to our departmental dose-optimization protocol, which includes automated exposure control, adjustment of the mA and/or kV according to patient size and/or use of iterative reconstruction technique. -- DLP- 1010 mGy-cm COMPARISON: Cervical spine magnetic resonance imaging of 03/18/2017, carotid Doppler March 16 2:27 AM FINDINGS: Aerodigestive tract: No mucosal lesion or asymmetry. Slightly motion limited evaluation.. Lymph nodes: No lymphadenopathy. Salivary glands: No mass lesion, inflammatory change, calcification, or sign of ductal obstruction. Vascular structures: Briskly enhancing lesion between the left internal/external carotid arteries measuring 14 x 12 x 24 mm. Similar, but slightly less avidly enhancing lesion on the right measuring 9 x 0. 9 x 1. 13 mm. This calcified bilateral carotid bifurcation atherosclerosis. Thyroid: Hypodense right-sided nodule measuring up to 18 mm. Paranasal sinuses: Clear with grossly patent drainage pathways. The mastoid are clear. Intracranial compartment: Within normal limits. Subcutaneous tissues: Within normal limits. Regional skeleton: Cervical and upper thoracic spine degenerative changes.. Lung apices: Within normal limits. IMPRESSION: 1. Bilateral carotid body tumors, left greater than right. 2. Thyroid ultrasound recommended to evaluate 18 mm hypodense nodule 04/03/2017 - - Read by: Michi Grullon MD Dictated Date/time: 04/03/17 13:02 Electronically Signed by: Michi Grullon MD 04/03/17 13:35 FINAL REPORT [facility] [place] [facility] cervical wo contrast MRI Spine cervical wo contrast MRI CERVICAL SPINE MRI WITHOUT CONTRAST: 03/18/2017 TECHNIQUE: Sagittal T1 and T2 weighted images were followed by axial T2-weighted views of the cervical spine without IV contrast. FINDINGS: The cervical cord is normal in size and signal intensity. There is no syrinx. The cerebellar tonsils are normal in position above the level of the foramen magnum. 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 The vertebrae are otherwise normal in shape, signal intensity and alignment. The intervertebral disks are desiccated with mild diffuse height loss. The prevertebral soft tissues are normal. The paravertebral musculature demonstrates moderate fatty atrophy in keeping with deconditioning. C2-C3: Mild disc osteophyte complex in the midline. No significant stenosis. C3-C4: Moderate disc osteophyte complexes with moderate uncovertebral and facet hypertrophy predominantly on the left side. Mild ligamentum flavum thickening. This results in moderate canal stenosis with slight anterior cord flattening. Moderate left neural foraminal narrowing slight deformity of the left C4 nerve root. C4-C5: Moderate disc osteophyte complexes with moderate uncovertebral and facet hypertrophy and moderate ligamentum flavum thickening. This results in moderate to severe canal stenosis (AP diameter 5 to 6 mm) with left greater than right anterior cord flattening but no definite cord signal change. Moderate bilateral neural foraminal narrowing, with facet spurs deforming left greater than right C5 nerve roots. C5-C6: Moderate disc osteophyte complexes with moderate uncovertebral and facet hypertrophy, with mild ligamentum flavum thickening. This results in moderate canal stenosis (AP diameter 7 mm) with anterior cord flattening. Severe right and moderate left neural foraminal narrowing with possible compression of the right and deformity of the left C6 nerve roots. C6-C7: Moderate disc osteophyte complexes and uncovertebral hypertrophy with midline disc extrusion measuring 4 mm anterior posteriorly and extending 7 mm above the level the disc. Mild ligamentum flavum thickening. This results in moderate canal stenosis with anterior cord flattening but no signal change. Moderate bilateral neural foraminal narrowing with deformity of the right greater than left C7 nerve roots. C7-T1: No abnormality. IMPRESSION: Moderate to severe multilevel degenerative changes as detailed above including moderate disc extrusion at C6-C7. Multilevel canal stenosis, combined congenital and acquired, is up to moderate to severe at C4-C5 with anterior cord flattening but no definite cord signal change. Multilevel foraminal stenosis with deformity or compression of the majority of mid to lower cervical nerve roots. 03/18/2017 - - Read by: Ye Victor MD Dictated Date/time: 03/18/17 13:06 Electronically Signed by: Ye Victor MD 03/18/17 13:15 FINAL REPORT [facility] Carotid artery Doppler bilat US Carotid artery Doppler bilat US Exam: Bilateral Carotid Doppler Ultrasound Reason for Exam: - I65.23 Occlusion and stenosis of bilateral carotid arteries Comparison Exam: MRI cervical spine 03/18/2017 Discussion: Real time grayscale, color Doppler imaging, and spectral waveform analysis was performed of the bilateral extracranial carotid arterial system. Right: No significant intimal thickening or plaques seen within the right common carotid artery. Mild amount of plaque seen within the right internal carotid artery bulb. The waveforms are within normal limits. The right vertebral artery is antegrade in flow. The highest velocity within the right ICA system is 58 cm/sec. The ICA/CCA ratio is 0.9. Left: No significant intimal thickening or plaques seen within the left common carotid artery. Mild amount of plaque seen within the left internal carotid artery bulb. The waveforms are within normal limits. The left vertebral artery is antegrade in flow. The highest velocity within the left ICA system is 57 cm/sec. The ICA/CCA ratio is 0.79. Within the region of the right and left carotid bifurcations are soft tissue like masses with vascular flow. The one on the right measures 1.7 x 0.8 x 0.7 cm. The one on the left measures 3.0 x 1.4 x 1.4 cm. They are suspicious for carotid body tumors. CT scan of the neck with contrast is recommended. Impression: 1. Mild calcified plaque seen within the right and left internal carotid artery bulbs without evidence for significant stenoses. (Consensus Panel Alegre Scale and Doppler ultrasound criteria). 2. Vertebral arteries are antegrade in flow. 3. Within the region of the right and left carotid bifurcations are soft tissue like masses with vascular flow. The one on the right measures 1.7 x 0.8 x 0.7 cm. The one on the left measures 3.0 x 1.4 x 1.4 cm. They are suspicious for carotid body tumors. CT scan of the neck with contrast is recommended. 03/18/2017 - - Read by: Jian Gallardo MD Dictated Date/time: 03/18/17 12:05 Electronically Signed by: Jian Gallardo MD 03/18/17 12:11 FINAL REPORT [facility] Brain wo contrast MRI Brain wo contrast MRI Brain wo contrast MRI 01/02/2017 10:21 AM W[facility] P[facility] M[facility]ER Clinical Indication: F32.9 Major depressive disorder, single episode, unspecified; Comparison: None TECHNIQUE: Multiplanar noncontrast MRI of the brain is performed. No intravenous gadolinium was given. FINDINGS: BRAIN PARENCHYMA: No restricted diffusion is identified. Moderate white matter FLAIR and T2-weighted signal abnormalities are seen, likely due to microvascular ischemia. Mild pontine chronic microvascular ischemia is present. Moderate generalized cerebral atrophy is seen. There is no extra-axial fluid collection or intraparenchymal hemorrhage. CEREBELLOPONTINE REGIONS, SELLA, AND SKULL: The cerebellopontine angles appear unremarkable.. No skull abnormality is seen. The pituitary gland appears unremarkable. VENTRICLES/EXTRA-AXIAL: The ventricles and sulci are normal in size and configuration for age. VISUALIZED VESSELS: Major intracranial flow voids are preserved. ORBITS, VISUALIZED PARANASAL SINUSES/MASTOIDS/CERVICAL SPINE: Paranasal sinuses are clear. The mastoid air cells are clear. No orbital pathology is seen. IMPRESSION: 1. No intracranial hemorrhage, mass, or acute infarct. 2. [id number] chronic microvascular ischemia. Moderate generalized cerebral atrophy. 01/02/2017 - - Read by: Mark Huang MD Dictated Date/time: 01/02/17 12:27 Electronically Signed by: Mark Huang MD 01/02/17 14:18 FINAL REPORT [facility] [place] Vital Signs Vital Sign Value Date Comments Source Encounters Location Location Details Encounter Type Encounter Number Reason For Visit Attending Provider ADM Date DC Date Status Source [facility] [place] [facility] [id number] Kia Avila 01/02/2017 01/03/2017 [facility] [place] [facility] [place] [facility] [id number] Kia Avila 03/18/2017 03/19/2017 [facility] [place] [facility] - [place] [facility] [id number] Denise Wyatt 04/03/2017 04/04/2017 [facility] [place] Outpatient [id number] TINA PRABHAKAR 04/26/2017 Active [facility] Outpatient [id number] Lauren Phillips 05/02/2017 05/03/2017 [facility] [place] [facility] [id number] Tina Prabhakar 05/17/2017 05/18/2017 [facility] Outpatient [id number] [facility] Hamid 09/03/2017 09/04/2017 [facility] Patients [id number] Waldemar [place] 04/10/2018 05/10/2018 [facility] Procedures Procedure Code Date Perfomer Comments Source Cataract surgery [id number] [facility] Cataract surgery [id number] [facility] [place] Cataract surgery [id number] [facility]
--- OUTSIDE RECORDS SUMMARY | 2018-08-12 12:08 | XMS REPORT | Summary of Care ---
Author Author [facility] [place] Organization [facility] [place] Address Unknown Phone Unavailable Encounter HQ Encntr_alias(FIN) [id number] Date(s): 04/03/17 - 04/03/17 [facility] [place] [address] [place] [phone] Discharge Disposition: Home or Self Care Attending Physician: Denise Wyatt MD Vital Signs No data available for [...]
--- OUTSIDE RECORDS SUMMARY | 2018-08-12 12:08 | XMS REPORT | Summary of Care ---
Author Author [facility] [place] Organization [facility] [place] Address Unknown Phone Unavailable Encounter HQ Encntr_alibelem(FIN) [id number] Date(s): 05/17/17 - 05/17/17 [facility] [address] [place] [phone] Discharge Disposition: Home or Self Care Attending Physician: Franck Quiroz MD Vital Signs No data available for [...] Procedures Procedure Date Related Diagnosis Body Site Cataract surgery Social History Social History Type Response Smoking Status Never smoker; Exposure to Tobacco Smoke None; Cigarette Smoking Last 365 Days No; Reg Smoking Cessation Counseling No Assessment and Plan No data available for this section
--- OUTSIDE RECORDS SUMMARY | 2018-08-12 12:08 | XMS REPORT | Summary of Care ---
Author Author [facility] Organization [facility] Address Unknown Phone Unavailable Encounter HQ Steve(FIN) [id number] Date(s): 05/02/17 - 05/02/17 [facility] [address] [place] [address]- Discharge Disposition: Home or Self Care Attending Physician: Lauren Phillips MD Admitting Physician: Lauren Phillips MD Vital Signs No data available for [...]
--- OUTSIDE RECORDS SUMMARY | 2018-08-12 12:08 | XMS REPORT | Summary of Care ---
Author Author [facility] Organization [facility] Address Unknown Phone Unavailable Encounter HQ Guevarar_gaurav(FIN) [id number] Date(s): 09/03/17 - 09/03/17 [facility] [address] [place] [address]- [phone] Discharge Disposition: Home or Self Care Attending Physician: Hedy Bee MD Admitting Physician: Hedy Bee MD Vital Signs No data available for [...]
--- OUTSIDE RECORDS SUMMARY | 2018-08-12 12:08 | XMS REPORT ---
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 Allergies, Adverse Reactions, Alerts Allergy Name Allergy Type Status Severity Reaction(s) Onset Date Inactive Date Treating Clinician Comments No Known Allergies DA Active U 2018-05-17 00:00:00 Medications This patient has no known medications. Results Test Description Test Time Test Comments Text Results Atomic Results Result Comments RENAL/LIVER DOPPLER [facility] 2018-08-07 17:50:00 [place] [address] Patient Name: JEREMY ARCHER MR #: [id number] : 1935 Age/Sex: 83/F Req #: [id number] Adm Physician: STACY JEONG MD Ordered by: STACY JEONG MD Report #: [id number] Location: MED/SURG3 Room/Bed: [facility] Procedure: [id number] US/US RENAL/LIVER DOPPLER LTD Exam Date: Exam Time: REPORT STATUS: Signed EXAMINATION: Renal Doppler ultrasound. CLINICAL HISTORY :Hypertension COMPARISON: <None available.> TECHNIQUE: Attempted Grayscale and color Doppler evaluation of the kidneys and bladder was performed in transverse and longitudinal planes. Attempted Doppler interrogation of the main, hilar, segmental and arcuate renal arteries bilaterally as well as evaluation of the aorta were performed. DISCUSSION: RIGHT KIDNEY: The right kidney measures 8.9 cm in length and shows increased echogenicity. No hydronephrosis, shadowing calculi or solid mass lesions. Right main renal artery PSV is 33 cm/sec. Highest right segmental artery PSV is 33 cm/sec. The right renal artery PSV/aortic PSV ratio is No measurable. LEFT KIDNEY: The left kidney measures 8.6 cm in length and shows increased echogenicity. No hydronephrosis, shadowing calculi or solid mass lesions. Left main renal artery PSV is 25 cm/sec. Highest left segmental artery PSV is not measurable. The left renal artery PSV/aortic PSV ratio is not measurable. Abdominal aortic PSV is not measurable. IMPRESSION: Nondiagnostic renal Doppler ultrasound. Majority of the renal arteries and aorta not measurable due to difficulty with exam by technologist. Small kidneys with increased echogenicity secondary to chronic medical renal disease. Signed by: Dr. Rolando Olivares M.D. on 08/07/2018 5:56 PM Dictated By: ROLANDO OLIVARES MD 55 Transcribed By: BETTE on 08/07/181755 COPY TO: STACY JEONG MD RENAL RETROPERITONEAL COMP 2018-08-06 12:47:00 [place] [address] Patient Name: JEREMY ARCHER MR #: [id number] : 1935 Age/Sex: 83/F Req #: [id number] Adm Physician: STACY JEONG MD Ordered by: STACY JEONG MD Report #: [id number] Location: MED/SURG3 Room/Bed: [facility] Procedure: [id number] US/US RENAL RETROPERITONEAL COMP Exam Date: Exam Time: REPORT STATUS: Signed EXAM: RENAL ULTRASOUND Date: 08/06/2018 12:00 AM Indication: Acute renal failure Comparison: None. Limitations: Patient unable to adequately position or hold breath. Image quality moderately degraded. Technique: Sonographic evaluation of the kidneys. Color doppler was utilized to supplement evaluation. FINDINGS: KIDNEYS: Right: Measures 7.1 cm in length. No hydronephrosis or solid mass lesion identified. Renal cortex measures 1.2 cm. Left: Measures 9.4 cm in length. No hydronephrosis or solid mass lesion identified. Renal cortex measures 1.4 cm. URINARY BLADDER: Unremarkable. Physiologic ureteral jets noted. OTHER: None. IMPRESSION: Renal size discrepancy with probable increased echotexture right kidney which can be seen in the setting of renal artery stenosis. Correlation recommended. Signed by: Dr. Indu Hinds MD on 08/06/2018 12:49 PM Dictated By: INDU HINDS MD 48 Transcribed By: BETTE on 08/06/181248 COPY TO: STACY JEONG MD MRI FOOT LEFT WO 2018-08-05 11:46:00 [place] [address] Patient Name: JEREMY ARCHER MR #: [id number] : 1935 Age/Sex: 83/F Req #: [id number] Adm Physician: STACY JEONG MD Ordered by: STACY JEONG MD Report #: [id number] Location: MED/SURG3 Room/Bed: [facility] Procedure: [id number] MRI/MRI FOOT LEFT WO Exam Date: Exam Time: REPORT STATUS: Signed MRI of the left foot without contrast. History: Great toe blister. Foot pain. Technique: Multiplanar multisequence MRI of the left foot without contrast Comparison: None Findings: There is abnormal skin thickening and soft tissue edema at the left great toe. No underlying cortical destruction or focal bone marrow edema is seen to suggest osteomyelitis in this region. There is abnormal skin thickening and apparent ulceration/blistering at the lateral aspect of the foot at the level of the distal fifth metatarsal. No underlying cortical destruction or focal bone marrow edema is seen to suggest osteomyelitis in this region. There is superficial soft tissue edema about the foot is pronounced dorsally. This is best seen on series 3 image 1 through 7. No acute fracture, dislocation or evidence of avascular necrosis. Scattered degenerative changes are seen. There is diffuse muscle atrophy. No ligamentous or tendon tear is seen. Impression: Findings consistent with cellulitis at the great toe. No underlying cortical destruction or focal bone marrow edema is seen to suggest osteomyelitis in this region. Findings consistent with cellulitis and apparent skin ulceration/blistering at the lateral aspect of the foot at the level of the distal fifth metatarsal. No underlying cortical destruction or focal bone marrow edema is seen to suggest osteomyelitis in this region. Signed by: Dr. Nick Tran M.D. on 08/05/2018 11:56 AM Dictated By: NICK TRAN MD, MD 1156 Transcribed By: BETTE on 08/05/18 1156 COPY TO: STACY JEONG MD MRI FOOT RIGHT WO 2018-08-05 11:42:00 [place] [address] Patient Name: JEREMY ARCHER MR #: [id number] : 1935 Age/Sex: 83/F Req #: [id number] Adm Physician: STACY JEONG MD Ordered by: STACY JEONG MD Report #: [id number] Location: MED/SURG3 Room/Bed: [facility] Procedure: [id number] MRI/MRI FOOT RIGHT WO Exam Date: Exam Time: REPORT STATUS: Signed MRI of the right foot without contrast. History: Lateral hindfoot ulceration. Foot pain. Technique: Multiplanar multisequence MRI of the right foot without contrast Comparison: None Findings: There is abnormal skin thickening with skin ulceration at the lateral aspect of the ankle at the level of the distal fibula. There is underlying cortical destruction and bone marrow edema in the distal fibula consistent with osteomyelitis. There is adjacent soft tissue edema. The findings are best seen on series 11 image 17 through 22. There is superficial soft tissue edema and blistering at the lateral aspect of the ankle/foot. This is best seen on image 23 through 30. No acute fracture, dislocation or evidence of avascular necrosis. Scattered degenerative changes are seen. There is diffuse muscle atrophy. No ligamentous or tendon tear is seen. Impression: Findings consistent with cellulitis, skin ulceration and underlying osteomyelitis involving the distal fibula. No well-formed drainable fluid collection/abscess is seen. Signed by: Dr. Nick Tran M.D. on 08/05/2018 11:46 AM Dictated By: NICK TRAN MD, MD 1146 Transcribed By: BETTE on 08/05/18 1146 COPY TO: STACY JEONG MD [facility] 2018-08-05 10:46:00 [place] [address] Patient Name: JEREMY ARCHER MR #: [id number] : 1935 Age/Sex: 83/F Req #: [id number] Adm Physician: STACY JEONG MD Ordered by: YAZMIN GRAFF DPM Report #: [id number] Location: MED/SURG3 Room/Bed: [facility] Procedure: [id number] DX/HEEL LT Exam Date: 08/05/18 Exam Time: 09 REPORT STATUS: Signed PROCEDURE: X-RAY LEFT HEEL COMPARISON: None. INDICATIONS: FOOT ULCER FINDINGS: Radiographs of the calcaneus demonstrate diffuse osteopenia without evidence of erosion or other bony destructive changes. Soft tissues are unremarkable. Mild scattered degenerative changes. There is a plantar calcaneal spur. CONCLUSION: Diffuse osteopenia without radiographic evidence of osteomyelitis. Dictated by: RAUL STUART M.D. on 08/05/2018 at 10:46 Electronically approved by: RAUL STUART M.D. on 08/05/2018 at 10:46 Dictated By: RAUL STUART MD 1046 Transcribed By: CECILE on 08/05/18 1046 COPY TO: YAZMIN GRAFF DPM FOOT LEFT COMPLETE 2018-08-05 10:44:00 [place] [address] Patient Name: JEREMY ARCHER MR #: [id number] : 1935 Age/Sex: 83/F Req #: [id number] Adm Physician: STACY JEONG MD Ordered by: YAZMIN GRAFF DPM Report #: [id number] Location: MED/SURG3 Room/Bed: [facility] Procedure: [id number] DX/FOOT LEFT COMPLETE Exam Date: 08/05/18 Exam Time: 929 REPORT STATUS: Signed PROCEDURE: X-RAY LEFT FOOT, COMPLETE COMPARISON: None. INDICATIONS: FOOT ULCER FINDINGS: Diffuse osteopenia. There is no evidence of fracture or malalignment. No evidence of erosion or other bony destructive changes. The soft-tissues are unremarkable. Atherosclerotic vascular calcifications. There is a plantar calcaneal spur. CONCLUSION: Diffuse osteopenia without radiographic evidence of osteomyelitis. Dictated by: RAUL STUART M.D. on 08/05/2018 at 10:44 Electronically approved by: RAUL STUART M.D. on 08/05/2018 at 10:44 Dictated By: RAUL STUART MD 1044 Transcribed By: CECILE on 08/05/181043 COPY TO: YAZMIN GRAFF DPM ANKLE 3+ VIEWS LEFT 2018-08-05 10:42:00 [place] [address] Patient Name: JEREMY ARCHER MR #: [id number] : 1935 Age/Sex: 83/F Req #: [id number] [facility] Physician: STACY JEONG MD Ordered by: YAZMIN GRAFF DPM Report #: [id number] Location: MED/SURG3 Room/Bed: [facility] Procedure: [id number] DX/ANKLE 3+ VIEWS LEFT Exam Date: Exam Time: REPORT STATUS: Signed PROCEDURE: ANKLE 3+ VIEWS LEFT (AP, LATERAL, AND OBLIQUE) INDICATION: COMPARISON: None. FINDINGS: Diffuse osteopenia. No evidence of fracture or malalignment. Ankle mortise is preserved. Mild scattered degenerative changes. No evidence of erosion or bony destructive changes. There is soft tissue swelling at the ankle. Plantar calcaneal spur. CONCLUSION: Diffuse osteopenia without specific radiographic evidence of osteomyelitis. Soft tissue swelling in the ankle. Dictated by: RAUL STUART M.D. on 08/05/2018 at 10:42 Electronically approved by: RAUL STUART M.D. on 08/05/2018 at 10:42 Dictated By: RAUL STUART MD 1042 Transcribed By: CECILE on 08/05/18 1042 COPY TO: YAZMIN GRAFF DPM
--- OUTSIDE RECORDS SUMMARY | 2018-08-12 12:08 | XMS REPORT | Summary of Care ---
Author Author [facility] [place] Organization [facility] [place] Address Unknown Phone Unavailable Encounter HQ Encntr_alias(FIN) [id number] Date(s): 03/18/17 - 03/18/17 [facility] [place] [address] [place] [address] [phone] Discharge Disposition: Home or Self Care Attending [...]
[2018-09-30] MEDS ORDERED: SEROQUEL25 MG PO (07:22)
== END 2018-08-07 19:25 | DRG 638 ==
LOC: MED/SURG3 17:03
PROVIDERS: ADMIT Internal Medicine; ATTEND Internal Medicine
PROC: B41D1ZZ Fluoroscopy of Aorta and Bilateral Lower Extremity Arteries using Low Osmolar Contrast (ICD-10-PCS; principal; 2018-08-06)
DX: E11.69 Type 2 diabetes mellitus with other specified complication (principal); M86.9 Osteomyelitis, unspecified; L03.116 Cellulitis of left lower limb; Z79.4 Long term (current) use of insulin; E11.22 Type 2 diabetes mellitus with diabetic chronic kidney disease; I12.9 Hypertensive chronic kidney disease with stage 1 through stage 4 chronic kidney disease, or unspecified chronic kidney disease; N18.3 Chronic kidney disease, stage 3 (moderate); E11.51 Type 2 diabetes mellitus with diabetic peripheral angiopathy without gangrene; M81.0 Age-related osteoporosis without current pathological fracture; F03.90 Unspecified dementia, unspecified severity, without behavioral disturbance, psychotic disturbance, mood disturbance, and anxiety
CPT/HCPCS: 36415; 75630; 76770; 80048; 80053; 80202; 81001; 82570; 82948; 84156; 85025; 87071; 87186; 87205; 93925; 93976; C1769; J1644; J2001; J2250; J2543; J3370; J7030; J7050; Q9967

== ENCOUNTER 2018-09-13 12:57 | Emergency (ER) | payer MEDICARE ==
[~2018-09-13] VITALS: Ht 160 cm; Wt 71.2 kg
[~2018-09-13 12:57] MED LIST changes: +ALENDRONATE SOD70 MG PO; +FERROUS SULFAT325 MG PO; +GABAPENTIN300 MG PO; +HYDROCHLOROTHIA25 MG PO; +LISINOPRIL10 MG PO; +MELOXICAM7.5 MG PO; +METOPROLOL TART25 MG PO; +OS-CAL 500+D T1 EACH PO; +PEPCID20 MG PO; +PIOGLITAZONE HC45 MG PO; +POTASSIUM CHLO10 ME1 PO; +REMERON15 MG PO; +namzaric PO
--- OUTSIDE RECORDS SUMMARY | 2018-09-13 13:00 | XMS REPORT | Continuity of Care Document ---
Author Author Rangel jaret [facility] Interface Address Unknown Phone Unavailable Problems Problem Status Onset Date Classification Date Reported Comments Source RIGHT SHOULDER Active 03/31/2018 [facility] [place] M25.511 Active 09/03/2017 [facility] M25.561 Active 05/02/2017 [facility] Encounter for general adult medical examination without abnormal findings 05/12/2018 [facility] [place] Encounter for screening for diabetes mellitus 05/12/2018 [facility] [place] Encounter for screening for lipoid disorders 05/12/2018 [facility] [place] Encounter for screening for infections with a predominantly sexual mode of transmission 05/12/2018 [facility] [place] Diabetes Active Problem 05/12/2018 [facility], [facility] [place] High blood pressure (<span ID="[id number]">Confirmed</span>) Active Problem 05/12/2018 [facility] [place],[facility], [facility] [place] Arthritis Active Problem 05/12/2018 [facility] [place],[facility], [facility] [place] Osteoporosis Active Problem 05/12/2018 [facility], [facility] [place] PAIN IN RIGHT KNEE Active [facility] PAIN IN LEFT KNEE Active [facility] PAIN IN RIGHT SHOULDER Active [facility] PRIMARY OSTEOARTHRITIS, RIGHT SHOULDER Active [facility] [place] IMPINGEMENT SYNDROME OF RIGHT SHOULDER Active [facility] [place] SUPERIOR GLENOID LABRUM LESION OF RIGHT Active [facility] [place] ENCNTR FOR GENERAL ADULT MEDICAL EXAM W/ Active [facility] [place] ENCOUNTER FOR SCREENING FOR DIABETES ROBERTO Active [facility] [place] ENCOUNTER FOR SCREENING FOR LIPOID DISOR Active [facility] [place] ENCNTR SCREEN FOR INFECTIONS W SEXL MODE Active [facility] [place] Medications Medication Details Route Status Patient Instructions [...] acute radiographic abnormalities in the right shoulder. [id number] 09/03/2017 - - Read by: Kelvin Olsen [...] 1-2 Views Bilateral DX Patient Name: JEREMY ARCEHR : 1935; Age: 82 years y/o Female MR: [id number] BILATERAL KNEES * RIGHT KNEE, 2 views [...] degenerative changes. Otherwise, negative left knee. SL: [id number] 05/02/2017 - - Read by: Doyle Villar MD Dictated Date/time: 05/02/17 14:07 Electronically Signed by: Doyle Villar MD 05/02/17 14:25 FINAL REPORT [facility] Shoulder 1 view DX Shoulder 1 view DX Patient Name: JEREMY ARCHER : 1935; Age: 82 years y/o Female MR: [id number] RIGHT SHOULDER, one view History: Right shoulder [...] seen. 2. No other osteoarticular abnormalities. 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 2. Khkb-le-rtbnwrsi chronic microvascular ischemia. Moderate generalized cerebral atrophy. 01/02/2017 - - Read by: Mark Huang MD Dictated Date/time: 01/02/17 12:27 Electronically Signed by: Mark Huang MD 01/02/17 14:18 FINAL REPORT [facility] [place] Vital Signs Vital Sign Value Date Comments Source Encounters Location Location Details Encounter Type Encounter Number Reason For Visit Attending Provider ADM Date DC Date Status Source [facility] [place] [facility] Services [id number] Kia Avila 01/02/2017 01/03/2017 [facility] [place] [facility] [place] [facility] [id number] Kia Avila 03/18/2017 03/19/2017 [facility] [place] [facility] [place] Out[facility] [id number] Denise Wyatt 04/03/2017 04/04/2017 [facility] [place] Outpatient [id number] TINA PRABHAKAR 04/26/2017 Active [facility] Outpatient [id number] Lauren Phillips 05/02/2017 05/03/2017 [facility] [place] Out[facility] Diag Services [id number] Tina Prabhakar 05/17/2017 05/18/2017 [facility] Outpatient [id number] [facility] [place] Hamid 09/03/2017 09/04/2017 [facility] [place] OP Therapy Patients [id number] Waldemar España 04/10/2018 05/10/2018 [facility] [place] Procedures Procedure Code Date Perfomer Comments Source Cataract surgery [id number] [facility] [place] Cataract surgery [id number] [facility] Cataract surgery [id number] [facility] Sanon
--- NOTE | 2018-09-13 13:46 | Diagnostic Imaging Report ---
Exam: right hand 3 views History: pain Comparison: None. Findings: No fracture or malalignment. Soft tissue swelling. Narrowing of the interphalangeal joints. Vascular calcifications. Impression: Soft tissue swelling. Signed by: Dr. Grant Reagan M.D. on 09/13/2018 1:43 PM
[2018-09-13 13:52] LABS: BASOPHILS % 0.6 % (0.0-1.0); EOSINOPHILS # (AUTO) 0.2 (0.0-0.4); EOSINOPHILS % 2.3 % (0.0-6.0); HEMATOCRIT 27.5 % (34.2-44.1); HEMOGLOBIN 8.7 g/dL (12.0-16.0); LYMPHOCYTES # (AUTO) 1.2 (1.0-3.2); LYMPHOCYTES % 18.9 % (18.0-39.1); MEAN CORPUSCULAR HEMOGLOBIN 31.5 pg (28-32); MEAN CORPUSCULAR HGB CONC 31.6 g/dL (31-35); MEAN CORPUSCULAR VOLUME 99.6 fL (81-99); MONOCYTES # (AUTO) 0.5 (0.2-0.8); MONOCYTES % 7.2 % (4.4-11.3); NEUTROPHILS # (AUTO) 4.5 (2.1-6.9); NEUTROPHILS % 70.5 % (38.7-80.0); PLATELET COUNT 174 x10e3/uL (140-360); RED BLOOD COUNT 2.76 x10e6/uL (3.6-5.1); RED CELL DISTRIBUTION WIDTH 14.3 % (11.7-14.4)
[2018-09-13 14:11] LABS: ANION GAP 14.9 mmol/L (8-16); BLOOD UREA NITROGEN 12 mg/dL (7-26); BUN/CREATININE RATIO 15 (6-25); CALCIUM 8.2 mg/dL (8.4-10.2); CARBON DIOXIDE 26 mmol/L (22-29); CHLORIDE 102 mmol/L (98-107); EST GLOMERULAR FILTRATION RATE > 60 ML/MIN (60-); GLUCOSE 128 mg/dL (74-118); POTASSIUM 3.9 mmol/L (3.5-5.1); SODIUM 139 mmol/L (136-145)
[2018-09-13] MEDS ORDERED: ATORVASTATIN CA20 MG PO (14:40)
[2018-09-13] MEDS ORDERED: ASCORBIC ACID500 MG PO (14:40)
[2018-09-13] MEDS ORDERED: NAMENDA10 MG PO (14:40)
[2018-09-13] MEDS ORDERED: [UNRECOGNIZED DRUG - CODE] PO (14:40)
[2018-09-13] MEDS ORDERED: ZINC50 MG PO (14:40)
[2018-09-13] MEDS ORDERED: TYLENOL PO (14:40)
[2018-09-13] MEDS ORDERED: ASPIR 8181 MG PO (14:40)
[2018-09-13] MEDS ORDERED: CIPRO500 MG PO (14:40)
[2018-09-13] MEDS ORDERED: CLONIDINE HCL0.2 MG PO (14:40)
[2018-09-13] MEDS ORDERED: DOXYCYCLINE HY100 MG PO (14:40)
[2018-09-13 15:19] LABS: INR 0.98; PROTHROMBIN TIME 13.9 seconds (11.9-14.5)
[2018-09-30] MEDS ORDERED: SEROQUEL25 MG PO (07:22)
== END 2018-09-13 17:26 | disposition home or self-care (01) ==
LOC: ER 12:57
DX: T80.89XA Other complications following infusion, transfusion and therapeutic injection, initial encounter (principal); S60.221A Contusion of right hand, initial encounter; Y92.128 Other place in nursing home as the place of occurrence of the external cause; F03.90 Unspecified dementia, unspecified severity, without behavioral disturbance, psychotic disturbance, mood disturbance, and anxiety; I10 Essential (primary) hypertension; E11.9 Type 2 diabetes mellitus without complications
CPT/HCPCS: 36415; 80048; 85025; 85610; 85730; 99284

== ENCOUNTER → 2018-09-30 | Day surgery (SDC) | payer MEDICARE ==
[~2018-09-30] MED LIST changes: +ASCORBIC ACID500 MG PO; +ASPIR 8181 MG PO; +ATORVASTATIN CA20 MG PO; +CIPRO500 MG PO; +CLONIDINE HCL0.2 MG PO; +DOXYCYCLINE HY100 MG PO; +LIDOCAINE 1% W/EPINEPHRINE 20 ML VIAL ONE; +LIDOCAINE HCL 2% LOCAL INJ 5 ML SDV VIAL INJ ONE; +NAMENDA10 MG PO; +PROPOFOL IV EMULSION 10 MG/ML 20 ML VIAL ONE; +SEROQUEL25 MG PO; +TYLENOL PO; +ZINC50 MG PO; +[UNRECOGNIZED DRUG - CODE] PO
[2018-09-30 08:35] VITALS: BP 157/72
--- NOTE | 2018-10-01 08:25 | Operative Report ---
DATE OF PROCEDURE: September 30, 2018 PREOPERATIVE DIAGNOSIS: Hematoma, dorsum left hand. POSTOPERATIVE DIAGNOSIS: Hematoma, dorsum left hand. OPERATIVE PROCEDURES: Evacuation of hematoma, left hand. ANESTHESIA: MAC/local. HISTORY: The patient is an 83-year-old female who had an IV placed several weeks ago. She developed a hematoma on the dorsal aspect of the left hand. Risks, benefits and alternatives of treatment were discussed with the patient and the family. They are prepared to undergo the procedures outlined. DETAILS OF PROCEDURE: Patient was marked preoperatively in the holding area. She was brought to the operating theater. After the induction of adequate general anesthesia, she was prepped and draped in a supine position. A time out was performed. After adequate IV sedation, the dorsal aspect of the hand was infiltrated with 1% Xylocaine with epinephrine. Approximately, 5 mL was used. The incision was made over the prominence of the hematoma through the skin and subcutaneous tissues with a 15 blade. An organized hematoma was then evacuated. The cavity was then irrigated until all the effluent was clear. Five-0 chromic sutures were used to repair the incision. A sterile bulky conforming bandage was applied. Patient tolerated the procedure well. Was brought to the recovery room in satisfactory condition and discharged with a postoperative instruction sheet, as well as a followup appointment. Job#: [id number] JACQUELYN
== END | disposition home or self-care (01) ==
LOC: OR 05:31
PROVIDERS: ATTEND Plastic Surgery
DX: S60.222A Contusion of left hand, initial encounter (principal); E11.22 Type 2 diabetes mellitus with diabetic chronic kidney disease; I12.9 Hypertensive chronic kidney disease with stage 1 through stage 4 chronic kidney disease, or unspecified chronic kidney disease; N18.9 Chronic kidney disease, unspecified; F03.90 Unspecified dementia, unspecified severity, without behavioral disturbance, psychotic disturbance, mood disturbance, and anxiety; X58.XXXA Exposure to other specified factors, initial encounter; Z79.82 Long term (current) use of aspirin; Z79.84 Long term (current) use of oral hypoglycemic drugs
CPT/HCPCS: 10140; 36415; 82948; 93005; J2001; J2704

== ENCOUNTER 2019-01-21 08:49 | Emergency (ER) | payer MEDICARE ==
[~2019-01-21] VITALS: Ht 160 cm; Wt 78.9 kg
[~2019-01-21 08:49] MED LIST changes: -LIDOCAINE 1% W/EPINEPHRINE 20 ML VIAL ONE; -LIDOCAINE HCL 2% LOCAL INJ 5 ML SDV VIAL INJ ONE; -PROPOFOL IV EMULSION 10 MG/ML 20 ML VIAL ONE
--- OUTSIDE RECORDS SUMMARY | 2019-01-21 08:52 | XMS REPORT | Continuity of Care Document ---
Author Author [facility] Interface Address Unknown Phone Unavailable Problems Problem Status Onset Date Classification Date Reported Comments Source RIGHT SHOULDER Active 03/31/2018 [facility] M25.511 Active 09/03/2017 [facility] M25.561 Active 05/02/2017 [facility] Encounter for general adult medical examination without abnormal findings 05/12/2018 [facility] [place] Encounter for screening for diabetes mellitus 05/12/2018 [facility] [place] Encounter for screening for lipoid disorders 05/12/2018 [facility] [place] Encounter for screening for infections with a predominantly sexual mode of transmission 05/12/2018 [facility] [place] Diabetes Active Problem 05/12/2018 [facility] [place] High blood pressure (<span ID="[id number]">Confirmed</span>) Active Problem 05/12/2018 [facility] [place] Arthritis Active Problem 05/12/2018 [facility] [place] Osteoporosis Active Problem 05/12/2018 [facility] [place] PAIN IN RIGHT KNEE Active [facility] PAIN IN LEFT KNEE Active [facility] PAIN IN RIGHT SHOULDER Active [facility] PRIMARY OSTEOARTHRITIS, RIGHT SHOULDER Active [facility] [place] IMPINGEMENT SYNDROME OF RIGHT SHOULDER Active [facility] [place] SUPERIOR GLENOID LABRUM LESION OF RIGHT Active [facility] [place] ENCNTR FOR GENERAL ADULT MEDICAL EXAM W/ Active [facility] [place] ENCOUNTER FOR SCREENING FOR DIABETES ROBERTO Active [facility] [place] ENCOUNTER FOR SCREENING FOR LIPOID DISOR Active [facility] [place] ENCNTR SCREEN FOR INFECTIONS W SEXL MODE Active [facility] [place] Medications Medication Details Route Status Patient Instructions [...] acute radiographic abnormalities in the right shoulder. [id number] 09/03/2017 - - Read by: Kelvin Olsen [...] Sloan MD 05/20/17 08:55 FINAL REPORT [facility] Knee 1-2 Views Bilateral DX Knee 1-2 Views Bilateral DX Patient Name: JEREMY ARCHER : 1935; Age: 82 years y/o Female MR: [id number] BILATERAL KNEES * RIGHT KNEE, 2 views [...] degenerative changes. Otherwise, negative left knee. SL: [id number] 05/02/2017 - - Read by: Doyle Villar MD Dictated Date/time: 05/02/17 14:07 Electronically Signed by: Doyle Villar MD 05/02/17 14:25 FINAL REPORT [facility] Shoulder 1 view DX Shoulder 1 view DX Patient Name: JEREMY ARCHER : 1935; Age: 82 years y/o Female MR: [id number] RIGHT SHOULDER, one view History: Right shoulder [...] seen. 2. No other osteoarticular abnormalities. 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 2. Snnr-yc-utdagwrm chronic microvascular ischemia. Moderate generalized cerebral atrophy. 01/02/2017 - - Read by: Mark Huang MD Dictated Date/time: 01/02/17 12:27 Electronically Signed by: Mark Huang MD 01/02/17 14:18 FINAL REPORT [facility] [place] Vital Signs Vital Sign Value Date Comments Source Encounters Location Location Details Encounter Type Encounter Number Reason For Visit Attending Provider ADM Date DC Date Status Source [facility] [place] Out[facility] [id number] Kia Avila 01/02/2017 01/03/2017 [facility] [place] [facility] [place] Out[facility] [id number] Kia Avila 03/18/2017 03/19/2017 [facility] [place] [facility] [place] Out[facility] [id number] Denise Wyatt 04/03/2017 04/04/2017 [facility] [place] Outpatient [id number] FRANCK PRABHAKAR 04/26/2017 Active [facility] Outpatient [id number] Lauren Phillips 05/02/2017 05/03/2017 [facility] [place] Outpt Diag Services [id number] Franck Prabhakar 05/17/2017 05/18/2017 [facility] Outpatient [id number] Hedy Bee 09/03/2017 09/04/2017 [facility] [place] OP Therapy Patients [id number] Waldemar España 04/10/2018 05/10/2018 [facility] Procedure Code Date Perfomer Comments Source Cataract surgery [id number] [facility] Cataract surgery [id number] [facility] [place] Cataract surgery [id number] [facility]
--- NOTE | 2019-01-21 11:19 | Diagnostic Imaging Report ---
Examination: Single AP view of the chest. COMPARISON: 11/15/2014 INDICATION: Cough DISCUSSION: Limited examination secondary to poor inspiratory effort and reverse lordotic positioning. The lung apices are obscured by superimposition of the patient's lower face. No gross consolidation, pleural effusion, or pneumothorax. Tortuous thoracic aorta. Normal heart size for technique. No overt pulmonary edema. No acute osseous abnormality. Posttraumatic changes of the right glenohumeral joint. IMPRESSION: Limited examination due to low lung volumes and patient positioning. No consolidative pneumonia. Signed by: Dr. Kelvin Harrington M.D. on 01/21/2019 11:16 AM
== END 2019-01-21 11:50 | disposition home or self-care (01) ==
LOC: ER 08:49
DX: R05 Cough (principal); J30.1 Allergic rhinitis due to pollen; I10 Essential (primary) hypertension; E11.9 Type 2 diabetes mellitus without complications; M81.0 Age-related osteoporosis without current pathological fracture; M19.90 Unspecified osteoarthritis, unspecified site; F03.90 Unspecified dementia, unspecified severity, without behavioral disturbance, psychotic disturbance, mood disturbance, and anxiety; Z79.82 Long term (current) use of aspirin; Z79.84 Long term (current) use of oral hypoglycemic drugs
CPT/HCPCS: 71045; 99283

== ENCOUNTER → 2019-06-12 | Outpatient (CLI) | payer MEDICARE ==
[~2019-06-12] MED LIST changes: +GADOBENATE DIMEGLUMINE 1 ML IV ONE; +SODIUM CHLORIDE 0.9% 100 ML 100 ML ONE
[2019-06-12 09:35] LABS: CREATININE, SERUM 0.94 mg/dL (0.57-1.11)
--- NOTE | 2019-06-12 11:42 | Diagnostic Imaging Report ---
MRA of the abdomen, with contrast. History: Hypertension, concern for renal artery stenosis. Comparison: Renal ultrasound 08/07/2018. Technique: Contrast-enhanced 3-D gradient echo MRA imaging of the abdomen and pelvis was performed post-IV administration of 16 cc of MultiHance. Volume rendering and MIP reformations were obtained. Discussion: Abdomen: MRA demonstrates single patent renal arteries bilaterally. The aorta, celiac trunk, SMA, and PATRICIA are normal. A 9 mm cyst is present medially in the upper pole of the left kidney. A 1.2 cm stone is present within the gallbladder. There is no gallbladder wall thickening. The liver, spleen, pancreas, and biliary ducts are within normal limits. Pelvis: Common, internal, and external iliac arteries are patent bilaterally. IMPRESSION: 1. Normal MRA of the abdomen. No evidence of renal artery stenosis. 2. Small left simple renal cyst and gallstone are noted. Signed by: Christopher Arana on 06/12/2019 11:38 AM
== END ==
LOC: MRI 08:57
PROVIDERS: ATTEND Internal Medicine
DX: I70.1 Atherosclerosis of renal artery (principal)
CPT/HCPCS: 36415; 74185; 82565; 84520; A9577

== ENCOUNTER → 2020-06-01 | Outpatient (CLI) | payer MEDICARE ==
[~2020-06-01] MED LIST changes: -SODIUM CHLORIDE 0.9% 100 ML 100 ML ONE; +SODIUM CHLORIDE 0.9% 100 ML ONE
[2020-06-01 09:27] LABS: CREATININE, SERUM 0.95 mg/dL (0.57-1.11)
--- NOTE | 2020-06-01 09:32 | Diagnostic Imaging Report ---
EXAM: Renal Ultrasound INDICATION: ^ARTERY STENOSIS COMPARISON: None TECHNIQUE: Transverse and longitudinal images of the kidneys and bladder were obtained. FINDINGS: Right Kidney: Length: 8.2 cm Appearance: Mildly increased echogenicity. Collecting system: No hydronephrosis Stones: None Cyst/Mass: None Left Kidney: Length: 7.5 cm Appearance: Mildly increased echogenicity. Collecting system: No hydronephrosis Stones: None Cyst/Mass: None Bladder: No mass or calculi. Bilateral ureteral jets visualized. Prevoid volume estimate of 206 cc. IMPRESSION: No hydronephrosis or renal calculi. Mildly increased renal parenchymal echogenicity can be seen in the setting of medical renal disease. Signed by: Jennifer Longo MD on 06/01/2020 9:29 AM
--- NOTE | 2020-06-02 12:25 | Diagnostic Imaging Report ---
Examination: MRA OF THE ABDOMEN Comparison: MRA 06/12/2019 Indication: Artery stenosis Technique: Axial and coronal SSFSE nonfat sat, axial and coronal 2-D FIESTA, axial 3-D IFIR MR images of the abdomen were performed. 17 cc of gadolinium were administered. Postcontrast dynamic coronal MRA ASSETT images were performed, as well as 3-D reconstructions. Subtraction images were also obtained. ABDOMINAL AORTA: Abdominal aorta demonstrates mild atherosclerotic changes and tortuosity. There is no evidence for acute aortic pathology. No aneurysmal dilation or dissection. The abdominal aorta measures: 2 cm at the supramesenteric segment 1.8 cm at the mesenteric segment 1.7 cm at the renal segment 1.6 cm at the mid infrarenal segment 1.6 cm at the aortic bifurcation. CELIAC AXIS/SMA: The celiac artery and SMA are widely patent. Inferior mesenteric artery is also patent. RENAL ARTERIES: Bilateral single renal arteries are normal in caliber and widely patent. . No atherosclerotic changes or wall thickening identified. ILIAC ARTERIES: Bilateral iliac arteries are normal in caliber. Right common iliac artery measures 0.9 cm. Left common iliac artery measures 1 cm. There is mild tortuosity of the external and internal iliac arteries which are otherwise patent and normal in caliber. ABDOMEN: The liver, spleen, adrenal glands, and bilateral kidneys are unremarkable. There are bilateral renal cysts. Incidental note is made of small bowel diverticula in the third portion of the duodenum. There is cholelithiasis. No gallbladder wall thickening BONES AND SOFT TISSUES: Unremarkable on limited evaluation. IMPRESSION: Mild atelectatic changes in the abdominal aorta. No evidence of aneurysmal dilation or occlusion. Patent bilateral single renal arteries. Signed by: Ciro Esparza MD on 06/02/2020 12:22 PM
== END ==
LOC: US 08:02
PROVIDERS: ATTEND Internal Medicine
DX: N18.3 Chronic kidney disease, stage 3 (moderate) (principal); I77.1 Stricture of artery
CPT/HCPCS: 36415; 74185; 76770; 82565; 84520; A9577; J7050

== ENCOUNTER → 2023-11-13 | Outpatient (REF) | payer MEDICARE ==
[~2023-11-13] MED LIST changes: +CEFDINIR300 MG PO; +CLINDAMYCIN HC150 MG PO; -GADOBENATE DIMEGLUMINE 1 ML IV ONE; -SODIUM CHLORIDE 0.9% 100 ML ONE
== END ==
LOC: RAD 09:37
PROVIDERS: ATTEND Nurse Practitioner Family
DX: L89.152 Pressure ulcer of sacral region, stage 2 (principal); I87.331 Chronic venous hypertension (idiopathic) with ulcer and inflammation of right lower extremity; L97.818 Non-pressure chronic ulcer of other part of right lower leg with other specified severity; R60.1 Generalized edema
CPT/HCPCS: 93922; 93926; 93971

== ENCOUNTER 2024-05-20 10:06 | Inpatient (IN) | payer MEDICARE ==
[~2024-05-20] VITALS: Ht 157.5 cm; Wt 99.8 kg
[~2024-05-20 10:06] MED LIST changes: +AMLODIPINE BESY10 MG PO; +CALCIUM ACETAT667 MG PO; +CEPHALEXIN500 MG PO; +FAMOTIDINE20 MG PO; +IRON PO; +LIPITOR10 MG PO; +METOPROLOL SUCC25 MG PO; +MULTI-VITAMIN1 EACH PO; +OXYBUTYNIN CHLOR5 MG PO; +QUETIAPINE FUMA25 MG PO; +VIT D3 PO; +ZESTRIL10 MG PO
[2024-05-20 12:59] LABS: BASOPHILS % 0.2 % (0.0-1.0); EOSINOPHILS # (AUTO) 0.3 (0.0-0.4); EOSINOPHILS % 3.2 % (0.0-6.0); HEMATOCRIT 29.2 % (34.2-44.1); HEMOGLOBIN 8.8 g/dL (12.0-16.0); LYMPHOCYTES # (AUTO) 1.7 (1.0-3.2); LYMPHOCYTES % 18.2 % (18.0-39.1); MEAN CORPUSCULAR HEMOGLOBIN 30.6 pg (28-32); MEAN CORPUSCULAR HGB CONC 30.1 g/dL (31-35); MEAN CORPUSCULAR VOLUME 101.4 fL (81-99); MONOCYTES # (AUTO) 0.7 (0.2-0.8); MONOCYTES % 7.4 % (4.4-11.3); NEUTROPHILS # (AUTO) 6.4 (2.1-6.9); NEUTROPHILS % 70.7 % (38.7-80.0); PLATELET COUNT 247 x10e3/uL (140-360); RED BLOOD COUNT 2.88 x10e6/uL (3.6-5.1); RED CELL DISTRIBUTION WIDTH 12.9 % (11.7-14.4); WHITE BLOOD COUNT 9.09 x10e3/uL (4.8-10.8)
[2024-05-20 13:21] LABS: ALBUMIN/GLOBULIN RATIO 0.9 (0.8-2.0); ANION GAP 11.8 mmol/L (8-16); BILIRUBIN,TOTAL 0.4 mg/dL (0.2-1.2); CALCIUM 8.4 mg/dL (8.4-10.2); CREATININE, SERUM 1.02 mg/dL (0.57-1.11); POTASSIUM 4.8 mmol/L (3.5-5.1); TOTAL PROTEIN 6.4 g/dL (6.5-8.1)
[2024-05-20] MEDS ORDERED: ONDANSETRON HCL INJ 2MG/ML 2ML 2 MG/ML VIAL IV PRN (14:00)
[2024-05-20] MEDS ORDERED: Morphine 2mg Syringe 2 MG/ML SYR IV PRN (14:00)
[2024-05-20 14:18] VITALS: PULSE 78; RESP 20; O2SAT 94
[2024-05-20 19:03] VITALS: PULSE 91; RESP 19; TEMP 100
[2024-05-20] MEDS: ACETAMINOPHEN 325 MG TAB PO STA (19:51)
[2024-05-20 20:00] VITALS: BP 123/70; PULSE 94; RESP 20; TEMP 97.6; O2SAT 98
[2024-05-20 21:00] VITALS: BP 123/70; PULSE 94; RESP 20; TEMP 97.6; O2SAT 98
[2024-05-20 21:19] VITALS: BP 123/70; PULSE 94; RESP 20; TEMP 97.6; O2SAT 98
[2024-05-20] MEDS: ATORVASTATIN 20 MG TAB PO SCH (21:23)
[2024-05-20] MEDS: QUETIAPINE FUMARATE 25 MG TAB PO SCH (21:23)
[2024-05-20 22:00] VITALS: PULSE 81; RESP 20; O2SAT 94
[2024-05-21] VITALS (9 sets, daily range): BP systolic 132–150; BP diastolic 56–95; PULSE 80–111; RESP 18–20; TEMP 98.3–100.2; O2SAT 95–100
[2024-05-21 06:28] LABS: BASOPHILS % 0.4 % (0.0-1.0); EOSINOPHILS # (AUTO) 0.2 (0.0-0.4); EOSINOPHILS % 2.5 % (0.0-6.0); HEMOGLOBIN 8.7 g/dL (12.0-16.0); LYMPHOCYTES # (AUTO) 1.7 (1.0-3.2); LYMPHOCYTES % 20.2 % (18.0-39.1); MEAN CORPUSCULAR HEMOGLOBIN 31.2 pg (28-32); MEAN CORPUSCULAR HGB CONC 31.1 g/dL (31-35); MEAN CORPUSCULAR VOLUME 100.4 fL (81-99); MONOCYTES # (AUTO) 0.6 (0.2-0.8); MONOCYTES % 6.8 % (4.4-11.3); NEUTROPHILS # (AUTO) 5.8 (2.1-6.9); NEUTROPHILS % 69.7 % (38.7-80.0); PLATELET COUNT 239 x10e3/uL (140-360); RED BLOOD COUNT 2.79 x10e6/uL (3.6-5.1); RED CELL DISTRIBUTION WIDTH 12.8 % (11.7-14.4); WHITE BLOOD COUNT 8.27 x10e3/uL (4.8-10.8)
[2024-05-21 06:58] LABS: ANION GAP 14.3 mmol/L (8-16); CALCIUM 7.9 mg/dL (8.4-10.2); CREATININE, SERUM 0.89 mg/dL (0.57-1.11); POTASSIUM 4.3 mmol/L (3.5-5.1)
[2024-05-21] MEDS: MULTIVITAMINS/MINERALS TAB PO SCH (09:56)
[2024-05-21] MEDS: CALCIUM ACETATE 667 MG GELCAP PO SCH (09:56)
[2024-05-21] MEDS: FAMOTIDINE 20 MG TAB PO SCH (09:57)
[2024-05-21] MEDS: METOPROLOL SUCCINATE 25 MG TAB XL PO SCH (09:57)
[2024-05-21] MEDS: LISINOPRIL 20 MG TAB PO SCH (09:58)
[2024-05-21] MEDS: AMLODIPINE BESYLATE 10 MG TAB PO SCH (09:58)
[2024-05-21] MEDS: OXYBUTYNIN CHLORIDE 5 MG TAB PO SCH (09:58)
[2024-05-21] MEDS ORDERED: ONDANSETRON HCL 4 MG ORAL DISINTEGRATING TAB PO PRN (14:45)
[2024-05-21] MEDS: BALSAM PERU/CASTOR OIL 60 GM OINT...G. TP SCH (17:53)
[2024-05-22] VITALS: BP 126/56; PULSE 94; RESP 16; TEMP 100.2; O2SAT 99
[2024-05-22 05:06] VITALS: BP 131/63; PULSE 88; RESP 20; TEMP 98.7; O2SAT 100
[2024-05-22 08:19] VITALS: BP 151/52; PULSE 93; RESP 20; TEMP 100; O2SAT 97
[2024-05-22 09:00] VITALS: BP 151/52; PULSE 93; RESP 20; TEMP 99.8; O2SAT 97
[2024-05-22] MEDS: COLLAGENASE 5 GM TUBE TOP SCH (10:19)
[2024-05-22 16:28] VITALS: BP 133/59; PULSE 111; RESP 16; TEMP 99.5; O2SAT 95
[2024-05-22] MEDS ORDERED: SODIUM HYPOCHLORITE 0.5% 480 ML BTL TOP SCH (17:00)
[2024-05-22 20:00] VITALS: BP 135/73; PULSE 109; RESP 20; TEMP 97.3; O2SAT 95
[2024-05-23] VITALS (7 sets, daily range): BP systolic 111–149; BP diastolic 46–69; PULSE 78–117; RESP 18–20; TEMP 97.3–99.8; O2SAT 95–100
[2024-05-23 06:07] LABS: BASOPHILS % 0.1 % (0.0-1.0); EOSINOPHILS # (AUTO) 0.4 (0.0-0.4); EOSINOPHILS % 4.3 % (0.0-6.0); HEMATOCRIT 25.6 % (34.2-44.1); HEMOGLOBIN 7.8 g/dL (12.0-16.0); LYMPHOCYTES # (AUTO) 1.7 (1.0-3.2); LYMPHOCYTES % 20.3 % (18.0-39.1); MEAN CORPUSCULAR HEMOGLOBIN 30.5 pg (28-32); MEAN CORPUSCULAR HGB CONC 30.5 g/dL (31-35); MONOCYTES # (AUTO) 0.7 (0.2-0.8); MONOCYTES % 8.1 % (4.4-11.3); NEUTROPHILS # (AUTO) 5.7 (2.1-6.9); NEUTROPHILS % 66.8 % (38.7-80.0); PLATELET COUNT 245 x10e3/uL (140-360); RED BLOOD COUNT 2.56 x10e6/uL (3.6-5.1); RED CELL DISTRIBUTION WIDTH 12.9 % (11.7-14.4); WHITE BLOOD COUNT 8.53 x10e3/uL (4.8-10.8)
[2024-05-23 06:20] LABS: ANION GAP 12.7 mmol/L (8-16); CALCIUM 8.2 mg/dL (8.4-10.2); CREATININE, SERUM 0.95 mg/dL (0.57-1.11); POTASSIUM 4.7 mmol/L (3.5-5.1)
[2024-05-23] MEDS: SODIUM HYPOCHLORITE 0.5% 480 ML BTL TOP SCH (10:30)
[2024-05-23] MEDS: PIOGLITAZONE HCL 15 MG TAB PO PRN (16:23)
[2024-05-24] VITALS (8 sets, daily range): BP systolic 124–150; BP diastolic 50–78; PULSE 62–113; RESP 16–18; TEMP 97.2–99.3; O2SAT 97–100
[2024-05-24 06:34] LABS: BASOPHILS % 0.2 % (0.0-1.0); EOSINOPHILS # (AUTO) 0.1 (0.0-0.4); EOSINOPHILS % 0.5 % (0.0-6.0); HEMOGLOBIN 8.3 g/dL (12.0-16.0); LYMPHOCYTES # (AUTO) 1.9 (1.0-3.2); LYMPHOCYTES % 18.6 % (18.0-39.1); MEAN CORPUSCULAR HEMOGLOBIN 30.2 pg (28-32); MEAN CORPUSCULAR HGB CONC 30.7 g/dL (31-35); MEAN CORPUSCULAR VOLUME 98.2 fL (81-99); MONOCYTES # (AUTO) 0.7 (0.2-0.8); MONOCYTES % 6.5 % (4.4-11.3); NEUTROPHILS # (AUTO) 7.5 (2.1-6.9); NEUTROPHILS % 73.3 % (38.7-80.0); PLATELET COUNT 268 x10e3/uL (140-360); RED BLOOD COUNT 2.75 x10e6/uL (3.6-5.1); RED CELL DISTRIBUTION WIDTH 12.9 % (11.7-14.4); WHITE BLOOD COUNT 10.16 x10e3/uL (4.8-10.8)
[2024-05-24 07:10] LABS: CALCIUM 10.2 mg/dL (8.4-10.2); CREATININE, SERUM 0.94 mg/dL (0.57-1.11)
[2024-05-24 07:32] LABS: FERRITIN 725.87 ng/mL (4.63-204.00)
[2024-05-24] MEDS: CEFTRIAXONE 2 GM in SODIUM CHLORIDE 0.9% 100 ML IV SCH (08:42)
[2024-05-24 10:54] LABS: ANION GAP 16.3 mmol/L (8-16)
[2024-05-25] VITALS (7 sets, daily range): BP systolic 114–136; BP diastolic 51–66; PULSE 72–108; RESP 16–20; TEMP 97.1–99.8; O2SAT 97–100
[2024-05-26] VITALS (8 sets, daily range): BP systolic 118–148; BP diastolic 55–80; PULSE 91–112; RESP 16–20; TEMP 98.1–99.7; O2SAT 97–100
[2024-05-27] VITALS: BP 134/52; PULSE 105; RESP 20; TEMP 98.2; O2SAT 100
[2024-05-27 04:00] VITALS: BP 148/75; PULSE 100; RESP 20; TEMP 98.8; O2SAT 100
[2024-05-27 08:42] VITALS: BP 161/69; PULSE 104; RESP 20; TEMP 98.6; O2SAT 98
[2024-05-27 09:00] VITALS: BP 161/69; PULSE 104; RESP 20; TEMP 98.6; O2SAT 98
[2024-05-27 12:44] VITALS: BP 147/56; PULSE 97; RESP 18; TEMP 98.8; O2SAT 100
[2024-05-27 17:04] VITALS: BP 138/65; PULSE 96; RESP 18; TEMP 98.6; O2SAT 100
== END 2024-05-27 18:41 | DRG 579 ==
LOC: ER 10:35 → MERGE 13:55 → ERHOLD 13:55 → MED/SURG2 21:05
PROVIDERS: ADMIT Internal Medicine; ATTEND Internal Medicine
PROC: 02HV33Z Insertion of Infusion Device into Superior Vena Cava, Percutaneous Approach (ICD-10-PCS; 2024-05-25)
PROC: B548ZZA Ultrasonography of Superior Vena Cava, Guidance (ICD-10-PCS; 2024-05-25)
PROC: 0KBP0ZZ Excision of Left Hip Muscle, Open Approach (ICD-10-PCS; principal; 2024-05-26)
PROC: 0KBN0ZZ Excision of Right Hip Muscle, Open Approach (ICD-10-PCS; 2024-05-26)
DX: L89.154 Pressure ulcer of sacral region, stage 4 (principal); R53.2 Functional quadriplegia; Z68.41 Body mass index [BMI] 40.0-44.9, adult; Z16.24 Resistance to multiple antibiotics; L97.819 Non-pressure chronic ulcer of other part of right lower leg with unspecified severity; L89.326 Pressure-induced deep tissue damage of left buttock; L89.316 Pressure-induced deep tissue damage of right buttock; B96.89 Other specified bacterial agents as the cause of diseases classified elsewhere; S80.822A Blister (nonthermal), left lower leg, initial encounter; E11.65 Type 2 diabetes mellitus with hyperglycemia; G30.9 Alzheimer's disease, unspecified; F02.80 Dementia in other diseases classified elsewhere, unspecified severity, without behavioral disturbance, psychotic disturbance, mood disturbance, and anxiety; E66.01 Morbid (severe) obesity due to excess calories; Z71.3 Dietary counseling and surveillance; K56.41 Fecal impaction; M24.50 Contracture, unspecified joint; R53.81 Other malaise; D63.8 Anemia in other chronic diseases classified elsewhere; I10 Essential (primary) hypertension; E11.51 Type 2 diabetes mellitus with diabetic peripheral angiopathy without gangrene; E11.69 Type 2 diabetes mellitus with other specified complication; E78.5 Hyperlipidemia, unspecified; Z79.84 Long term (current) use of oral hypoglycemic drugs; M81.0 Age-related osteoporosis without current pathological fracture; X58.XXXA Exposure to other specified factors, initial encounter; G89.29 Other chronic pain; Z74.01 Bed confinement status; Z11.52 Encounter for screening for COVID-19; Z79.899 Other long term (current) drug therapy
CPT/HCPCS: 36415; 36569; 71045; 72193; 80048; 80053; 82728; 83540; 83605; 84466; 85025; 87040; 87071; 87186; 87205; 94799; 99252; 99284; J0696; J2543; J7050; U0002

== ENCOUNTER 2024-12-11 08:52 | Emergency (ER) | payer MEDICARE ==
[~2024-12-11] VITALS: Ht 193 cm; Wt 83.9 kg
[2024-12-11 09:41] VITALS: PULSE 84; RESP 18; TEMP 97.4; O2SAT 99
== END 2024-12-11 09:47 | disposition home or self-care (01) ==
LOC: ER 08:55
DX: L89.154 Pressure ulcer of sacral region, stage 4 (principal); E11.9 Type 2 diabetes mellitus without complications; I10 Essential (primary) hypertension; G30.9 Alzheimer's disease, unspecified; F02.80 Dementia in other diseases classified elsewhere, unspecified severity, without behavioral disturbance, psychotic disturbance, mood disturbance, and anxiety
CPT/HCPCS: 99282